=== PATIENT | female | born 1950 | race African-American/Black ===

== ENCOUNTER 2016-05-29 11:56 | Inpatient (IN) | payer OTHER, MEDICARE ==
[2016-05-29] VITALS (17 sets, daily range): BP systolic 122–261; BP diastolic 65–160; PULSE 64–140; RESP 16–20; TEMP 97.6–98.4; O2SAT 96–100
[~2016-05-29] VITALS: Ht 172.7 cm; Wt 67.6 kg
[~2016-05-29 11:56] MED LIST: LISI-587 PO
--- NOTE | 2016-05-29 12:08 | PD ---
Physical Exam Time Seen by Provider: 12:05 Narrative 66 yo female with c/o high BP. Been out of meds for 1 month. Denies symptoms. Told to come to ER by PCP. Has appointment with PCP tomorrow. BP elevated in Triage. Seen in triage, awaiting bed placement. Data Data Last Documented VS Vital Signs Date Time Temp Pulse Resp B/P Pulse Ox O2 Delivery O2 Flow Rate FiO2 05/29/16 11:58 97.6 140 20 246/160 98 Room Air MDM Supervised Visit with HINA: Kayla Cerrato May 29, 2016 12:08
[2016-05-29] MEDS ORDERED: cloNIDine HCL 0.2 MG TAB PO ONE (12:30)
[2016-05-29] MEDS ORDERED: HYDROCHLOROTHIAZIDE 25 MG TAB PO ONE (12:30)
[2016-05-29] MEDS ORDERED: LISINOPRIL 20 MG TAB PO ONE (12:30)
--- NOTE | 2016-05-29 13:09 | PD ---
HPI Chief Complaint: Hypertension Time Seen by Provider: 12:16 Travel History International Travel<30 days: No Contact w/Intl Traveler<30days: No Traveled to known affect area: No History of Present Illness HPI This 66 year-old woman who presents to the emergency department complaining of elevated blood pressure. Patient's had hypertension for some time. She is normally on clonidine 0.2 mg twice a day and Zestoretic . She could have her medicine for 2 months. She went to her doctor they can see her. She has appointment with a new primary care doctor tomorrow. The secondary to the emergency department because her blood pressure is elevated. She denies any symptoms at all at this point. No chest pain. No trouble breathing. No headache. History Past Medical History Narrative Medical Hypertension Influenza Vaccination: No Past Surgical History Surgical History: No Previous Surgery Social History Alcohol Use: Yes (OCCASIONAL ) Tobacco Use: Yes Allergies-Medications (Allergen,Severity, Reaction): Coded Allergies: No Known Allergies (Unverified , 05/29/16) Reported Meds & Prescriptions Reported Meds & Active Scripts Active Zestoretic (HCTZ/Lisinopril) Tab 1 Tab PO DAILY 15 Days Review of Systems Except as stated in HPI: all other systems reviewed are Neg Physical Exam Narrative GENERAL: Well-appearing 66 year-old woman, no acute distress. SKIN: Focused skin assessment warm/dry. NECK: Trachea midline. No JVD. CARDIOVASCULAR: Regular rate and rhythm. No murmur appreciated. RESPIRATORY: No accessory muscle use. Clear to auscultation. Breath sounds equal bilaterally. GASTROINTESTINAL: Abdomen soft, non-tender, nondistended. Hepatic and splenic margins not palpable. MUSCULOSKELETAL: No obvious deformities. No clubbing. No cyanosis. No edema. NEUROLOGICAL: Awake and alert. No obvious cranial nerve deficits. Motor grossly within normal limits. Normal speech. PSYCHIATRIC: Appropriate mood and affect; insight and judgment normal. Data Data Last Documented VS Vital Signs Date Time Temp Pulse Resp B/P Pulse Ox O2 Delivery O2 Flow Rate FiO2 05/29/16 15:13 76 20 215/103 99 Room Air 05/29/16 11:58 97.6 Orders Clonidine (Catapres) (05/29/16 12:30) Lisinopril (Prinivil) (05/29/16 12:30) Hydrochlorothiazide (Hydrodiuril) (05/29/16 12:30) Labetalol Inj (Trandate Inj) (05/29/16 13:45) Complete Blood Count With Diff (05/29/16 13:42) Comprehensive Metabolic Panel (05/29/16 13:42) Electrocardiogram (05/29/16 ) Iv Access Insert/Monitor (05/29/16 13:43) Admit Order (Ed Use Only) (05/29/16 ) Labs Laboratory Tests Test 05/29/16 14:00 White Blood Count 9.7 TH/MM3 Red Blood Count 4.64 MIL/MM3 Hemoglobin 14.1 GM/DL Hematocrit 41.5 % Mean Corpuscular Volume 89.5 FL Mean Corpuscular Hemoglobin 30.5 PG Mean Corpuscular Hemoglobin 34.1 % Concent Red Cell Distribution Width 13.6 % Platelet Count 137 TH/MM3 Mean Platelet Volume 8.8 FL Neutrophils (%) (Auto) 81.5 % Lymphocytes (%) (Auto) 13.9 % Monocytes (%) (Auto) 4.3 % Eosinophils (%) (Auto) 0.1 % Basophils (%) (Auto) 0.2 % Neutrophils # (Auto) 7.9 TH/MM3 Lymphocytes # (Auto) 1.4 TH/MM3 Monocytes # (Auto) 0.4 TH/MM3 Eosinophils # (Auto) 0.0 TH/MM3 Basophils # (Auto) 0.0 TH/MM3 CBC Comment DIFF FINAL Differential Comment Sodium Level 138 MEQ/L Potassium Level 3.7 MEQ/L Chloride Level 105 MEQ/L Carbon Dioxide Level 22.4 MEQ/L Anion Gap 11 MEQ/L Blood Urea Nitrogen 9 MG/DL Creatinine 0.96 MG/DL Estimat Glomerular Filtration 70 ML/MIN Rate Random Glucose 134 MG/DL Calcium Level 9.3 MG/DL Total Bilirubin 0.9 MG/DL Aspartate Amino Transf 34 U/L (AST/SGOT) Alanine Aminotransferase 19 U/L (ALT/SGPT) Alkaline Phosphatase 87 U/L Total Protein 8.2 GM/DL Albumin 3.4 GM/DL [facility] Medical Decision Making Medical Screen Exam Complete: Yes Emergency Medical Condition: Yes Interpretation(s) My review of EKG: Normal sinus rhythm at a rate of 75, leftward axis, probable LVH, no definite evidence of acute ischemia. LABS: CBC remarkable for mildly low platelets CMP is unremarkable Differential Diagnosis Asymptomatic hypertension, hypertensive crisis, accelerated hypertension Narrative Course Medical decision making 66 year-old woman with marked elevation in her blood pressure but no symptoms at all. She could be having rebound hypertension but she's been out of her clonidine for some time. 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 Diagnosis Primary Impression: Accelerated hypertension Admitting Information Admitting Physician Requests: Admit Martin Mosqueda MD May 29, 2016 13:09
[2016-05-29] MEDS ORDERED: LABETALOL HCL 100 MG/20 ML VIAL IV PUSH ONE (13:45)
[2016-05-29 14:22] LABS: AUTOMATED NEUTROPHIL # 7.9 TH/MM3 (1.8-7.7); BASOPHIL % 0.2 % (0.0-2.0); EOSINOPHIL % 0.1 % (0.0-4.0); HEMATOCRIT 41.5 % (35.0-46.0); HEMO FLAGS DIFF FINAL; LYMPH % 13.9 % (9.0-44.0); LYMPHOCYTE # 1.4 TH/MM3 (1.0-4.8); MEAN CELL VOLUME 89.5 FL (80.0-100.0); MEAN CORPUSCULAR HEMOGLOBIN 30.5 PG (27.0-34.0); MEAN CORPUSCULAR HGB CONC 34.1 % (32.0-36.0); MONO % 4.3 % (0.0-8.0); NEUT % 81.5 % (16.0-70.0); PLATELET COUNT 137 TH/MM3 (150-450); RED BLOOD COUNT 4.64 MIL/MM3 (4.00-5.30); RED CELL DISTRIBUTION WIDTH 13.6 % (11.6-17.2); WHITE BLOOD COUNT 9.7 TH/MM3 (4.0-11.0)
[2016-05-29 15:05] LABS: ALKALINE PHOSPHATASE 87 U/L (45-117); TOTAL BILIRUBIN ADULT 0.9 MG/DL (0.2-1.0)
[2016-05-29 15:06] LABS: ALT (GPT) 19 U/L (10-53); ANION GAP 11 MEQ/L (5-15); AST (GOT) 34 U/L (15-37); BICARBONATE 22.4 MEQ/L (21.0-32.0); BLOOD UREA NITROGEN 9 MG/DL (7-18); CHLORIDE 105 MEQ/L (98-107); GLOMERULAR FILTRATION RATE 70 ML/MIN (>89); POTASSIUM 3.7 MEQ/L (3.5-5.1); SODIUM (NA) 138 MEQ/L (136-145)
[2016-05-29] MEDS ORDERED: ACETAMINOPHEN 325 MG TAB PO PRN ×2 (15:45)
[2016-05-29] MEDS ORDERED: ONDANSETRON HCL 4 MG/2 ML VIAL IVP PRN (15:45)
[2016-05-29] MEDS ORDERED: NALOXONE HCL 0.4 MG/ML AMP IV PRN (15:45)
[2016-05-29] MEDS ORDERED: ENOXAPARIN SODIUM 40 MG/0.4 ML SYRINGE SQ SCH (15:45)
[2016-05-29] MEDS ORDERED: SODIUM CHLORIDE 0.9% FLUSH 10 ML FLUSH IV FLUSH PRN (15:45)
--- NOTE | 2016-05-29 15:48 | HHI.HP ---
[facility] Primary Care Physician Non-Staff Admission Diagnosis accelerated hypertension Diagnoses: (1) Accelerated hypertension (2) Impaired fasting glucose (3) Thrombocytopenia Chief Complaint: elevated BP Travel History International Travel<30 Days: No Contact w/Intl Traveler <30 Da: No Traveled to Known Affected Are: No History of Present Illness 66-year-old female with a history of hypertension as advised to come to the ED for evaluation of elevated BP which on arrival in the ED was 246/160 however despite you clonidine 0.21 in lateral 20 mg IV 1 patient's SBP remains elevated above 200. Patient states for the past 2 months she run out of her medications and was unable to eat her per Medicare physician, who has been assigned to her recently and is supposed to establish care tomorrow 05/30/16 at 10 AM. She also reports fatigue however denies any headaches, blurred vision or GI bleed. Review of Systems Other 12 systems reviewed and are negative except for the one mentioned in the history of present illness Past Family Social History Past Medical History Hypertension Past Surgical History No Previous Surgery Reported Medications Zestoretic 20/ (HCTZ/Lisinopril) Tab 1 Tab PO DAILY 15 Days Allergies: Coded Allergies: No Known Allergies (Unverified , 05/29/16) Family History Strong family history of diabetes type 2, end-stage renal disease Social History Alcohol Use: Yes (OCCASIONAL ) Tobacco Use: Yes Physical Exam Vital Signs Vital Signs Date Time Temp Pulse Resp B/P Pulse Ox O2 Delivery O2 Flow Rate FiO2 05/29/16 15:13 76 20 215/103 99 Room Air 05/29/16 14:37 83 20 224/105 99 Room Air 05/29/16 14:34 99 20 241/123 99 Room Air 05/29/16 13:38 119 20 259/130 99 Room Air 05/29/16 13:35 117 20 248/134 99 Room Air 05/29/16 12:57 140 20 261/141 05/29/16 11:58 97.6 140 20 246/160 98 Room Air Physical Exam GENERAL: This is a well-nourished, well-developed patient, in no apparent distress. SKIN: No rashes, ecchymoses or lesions. Cool and dry. HEAD: Atraumatic. Normocephalic. No temporal or scalp tenderness. EYES: Pupils equal round and reactive. Extraocular motions intact. No scleral icterus. No injection or drainage. ENT: Nose without bleeding, purulent drainage or septal hematoma. Throat without erythema, tonsillar hypertrophy or exudate. Uvula midline. Airway patent. NECK: Trachea midline. No JVD or lymphadenopathy. Supple, nontender, no meningeal signs. CARDIOVASCULAR: Regular rate and rhythm without murmurs, gallops, or rubs. RESPIRATORY: Clear to auscultation. Breath sounds equal bilaterally. No wheezes , rales, or rhonchi. GASTROINTESTINAL: Abdomen soft, non-tender, nondistended. No hepato-splenomegaly , or palpable masses. No guarding. MUSCULOSKELETAL: Extremities without clubbing, cyanosis, or edema. No joint tenderness, effusion, or edema noted. No calf tenderness. Negative Homans sign bilaterally. NEUROLOGICAL: Awake and alert. Cranial nerves II through XII intact. Motor and sensory grossly within normal limits. Five out of 5 muscle strength in all muscle groups. Normal speech. Laboratory Laboratory Tests Test 05/29/16 14:00 White Blood Count 9.7 Red Blood Count 4.64 Hemoglobin 14.1 Hematocrit 41.5 Mean Corpuscular Volume 89.5 Mean Corpuscular Hemoglobin 30.5 Mean Corpuscular Hemoglobin 34.1 Concent Red Cell Distribution Width 13.6 Platelet Count 137 Mean Platelet Volume 8.8 Neutrophils (%) (Auto) 81.5 Lymphocytes (%) (Auto) 13.9 Monocytes (%) (Auto) 4.3 Eosinophils (%) (Auto) 0.1 Basophils (%) (Auto) 0.2 Neutrophils # (Auto) 7.9 Lymphocytes # (Auto) 1.4 Monocytes # (Auto) 0.4 Eosinophils # (Auto) 0.0 Basophils # (Auto) 0.0 CBC Comment DIFF FINAL Differential Comment Sodium Level 138 Potassium Level 3.7 Chloride Level 105 Carbon Dioxide Level 22.4 Anion Gap 11 Blood Urea Nitrogen 9 Creatinine 0.96 Estimat Glomerular Filtration 70 Rate Random Glucose 134 Calcium Level 9.3 Total Bilirubin 0.9 Aspartate Amino Transf 34 (AST/SGOT) Alanine Aminotransferase 19 (ALT/SGPT) Alkaline Phosphatase 87 Total Protein 8.2 Albumin 3.4 Result Diagram: 05/29/16 1400 05/29/16 1400 Assessment and Plan Problem List: (1) Accelerated hypertension ICD Code: I10 Status: Acute (2) Thrombocytopenia ICD Code: D69.6 Status: Acute (3) Impaired fasting glucose ICD Code: R73.01 Status: Acute Assessment and Plan 66-year-old female with Accelerated hypertension: Secondary to noncompliance; will admit patient in ICU and start Cardene drip .check 2-D echo as well as lipid profile. Will also check cardiac enzyme and EKG. Monitor BMP Medical noncompliance: Patient consult against IFG: Known history of diabetes type 2, check A1c and treat accordingly Thrombocytopenia: Monitor CBC DVT prophylaxis: Heparin subcutaneous Critical care time spent over 55minutes Code Status Full code Discussed Condition With Patient, , ED physician Physician Certification 2 Midnight Certification Type: Admission for Inpatient Services Order for Inpatient Services The services are ordered in accordance with Medicare regulations or non- Medicare payer requirements, as applicable. In the case of services not specified as inpatient-only, they are appropriately provided as inpatient services in accordance with the 2-midnight benchmark. Estimated LOS (days): 2 days is the estimated time the patient will need to remain in the hospital, assuming treatment plan goals are met and no additional complications. Post-Hospital Plan: Not yet determined Richie Meraz MD May 29, 2016 15:48
[2016-05-29] MEDS: niCARdipine INJ 25 MG in SODIUM CHLOR 0.9% 250 ML INJ 250 ML IV SCH (16:11)
[2016-05-29] MEDS ORDERED: CLON0.2T PO (17:03)
[2016-05-29] MEDS ORDERED: [UNRECOGNIZED DRUG - REMARK] (17:03)
[2016-05-29] MEDS ORDERED: LISI20TA PO (17:03)
[2016-05-29] MEDS: HEPARIN SODIUM - SQ 10,000 UNITS/ML VIAL SQ SCH (20:53)
[2016-05-29] MEDS: SODIUM CHLORIDE 0.9% FLUSH 10 ML FLUSH IV FLUSH SCH (20:53)
[2016-05-29] MEDS ORDERED: TEMAZEPAM 15 MG CAP PO PRN (21:00)
--- NOTE | 2016-05-29 22:36 | EKG ---
Date Performed: 05/29/2016 Time Performed: 15:18:37 PTAGE: 66 years EKG: Sinus rhythm POSSIBLE LEFT ATRIAL ENLARGEMENT LEFT VENTRICULAR HYPERTROPHY AND ST-T CHANGE ABNORMAL ECG PREVIOUS TRACING : 12/13/2013 16.30 Compared to previous tracing, nonspecific lateral T wave ab normality is now present. DOCTOR: Tima Main Interpretating Date/Time 05/29/2016 22:34:41
[2016-05-30 03:00] VITALS: BP 164/94; PULSE 85; RESP 20; TEMP 98.1; O2SAT 98
[2016-05-30] MEDS: niCARdipine INJ 25 MG in SODIUM CHLOR 0.9% 250 ML INJ 250 ML IV SCH (04:50)
[2016-05-30 05:00] LABS: AUTOMATED NEUTROPHIL # 5.3 TH/MM3 (1.8-7.7); BASOPHIL # 0.1 TH/MM3 (0-0.2); EOSINOPHIL % 0.6 % (0.0-4.0); HEMATOCRIT 39.7 % (35.0-46.0); HEMO FLAGS DIFF FINAL; LYMPHOCYTE # 1.9 TH/MM3 (1.0-4.8); MEAN CELL VOLUME 87.9 FL (80.0-100.0); MEAN CORPUSCULAR HEMOGLOBIN 31.2 PG (27.0-34.0); MEAN CORPUSCULAR HGB CONC 35.5 % (32.0-36.0); MONO % 6.5 % (0.0-8.0); NEUT % 67.9 % (16.0-70.0); PLATELET COUNT 124 TH/MM3 (150-450); RED BLOOD COUNT 4.52 MIL/MM3 (4.00-5.30); RED CELL DISTRIBUTION WIDTH 13.5 % (11.6-17.2); WHITE BLOOD COUNT 7.8 TH/MM3 (4.0-11.0)
[2016-05-30 05:30] LABS: ALKALINE PHOSPHATASE 82 U/L (45-117); ALT (GPT) 16 U/L (10-53); ANION GAP 11 MEQ/L (5-15); AST (GOT) 20 U/L (15-37); BICARBONATE 26.2 MEQ/L (21.0-32.0); BLOOD UREA NITROGEN 8 MG/DL (7-18); CHLORIDE 101 MEQ/L (98-107); GLOMERULAR FILTRATION RATE 88 ML/MIN (>89); HDL CHOLESTEROL 49.1 MG/DL (40.0-60.0); LDL CHOLESTEROL 92 MG/DL (0-99); SODIUM (NA) 138 MEQ/L (136-145)
[2016-05-30 05:34] LABS: POTASSIUM 2.9 MEQ/L (3.5-5.1)
[2016-05-30] MEDS ORDERED: POTASSIUM CHLORIDE 20 MEQ CONTROLLED RELEASE TAB PO ONE (05:45)
[2016-05-30] MEDS ORDERED: POTASSIUM CHLORIDE 10 MEQ CONTROLLED RELEASE TAB PO ONE (07:30)
[2016-05-30 07:35] VITALS: BP 160/88; PULSE 112; RESP 18; TEMP 98.6; O2SAT 97
[2016-05-30] MEDS ORDERED: CLON.2 PO (08:35)
[2016-05-30] MEDS ORDERED: LISI-586 PO (08:35)
[2016-05-30] MEDS ORDERED: POTA-163 PO (08:35)
[2016-05-30] MEDS: SODIUM CHLORIDE 0.9% FLUSH 10 ML FLUSH IV FLUSH SCH (08:36)
[2016-05-30] MEDS: HEPARIN SODIUM - SQ 10,000 UNITS/ML VIAL SQ SCH (08:37)
--- NOTE | 2016-05-30 08:54 | HHI.PR ---
Subjective Remarks Follow-up accelerated hypertension 05/30/16-patient seen and examined, BP improved, patient denies any chest pain or shortness of breath. No acute event overnight. Objective Vitals Vital Signs Date Time Temp Pulse Resp B/P Pulse Ox O2 Delivery O2 Flow Rate FiO2 05/30/16 07:35 98.6 112 18 160/88 97 05/30/16 07:35 112 05/30/16 03:00 98.1 85 20 164/94 98 05/30/16 03:00 85 05/29/16 23:00 64 05/29/16 23:00 98.1 64 18 122/65 97 05/29/16 19:00 98.4 74 16 156/81 96 05/29/16 19:00 74 05/29/16 18:00 98.4 115 16 178/80 99 05/29/16 17:50 75 18 158/80 98 Room Air 05/29/16 17:31 70 16 185/87 100 Room Air 05/29/16 17:00 77 18 193/89 99 Room Air 05/29/16 16:50 75 18 192/91 99 Room Air 05/29/16 16:30 77 18 194/91 99 Room Air 05/29/16 16:17 70 18 233/109 100 Room Air 05/29/16 15:13 76 20 215/103 99 Room Air 05/29/16 14:37 83 20 224/105 99 Room Air 05/29/16 14:34 99 20 241/123 99 Room Air 05/29/16 13:38 119 20 259/130 99 Room Air 05/29/16 13:35 117 20 248/134 99 Room Air 05/29/16 12:57 140 20 261/141 05/29/16 11:58 97.6 140 20 246/160 98 Room Air I/O 05/29/16 05/29/16 05/29/16 05/30/16 05/30/16 05/30/16 07:00 15:00 23:00 07:00 15:00 23:00 Intake Total 1031 ml Output Total 1325 ml Balance -294 ml Intake Oral 960 ml IV Total 71 ml Output Urine Total 1325 ml # Bowel Movements 0 Result Diagram: 05/30/16 0444 05/30/16 0444 Objective Remarks GENERAL: NAD SKIN: Warm and dry. HEAD: Normocephalic. EYES: No scleral icterus. No injection or drainage. NECK: Supple, trachea midline. No JVD or lymphadenopathy. CARDIOVASCULAR: Regular rate and rhythm without murmurs, gallops, or rubs. RESPIRATORY: Breath sounds equal bilaterally. No accessory muscle use. GASTROINTESTINAL: Abdomen soft, non-tender, nondistended. MUSCULOSKELETAL: No cyanosis, or edema. BACK: Nontender without obvious deformity. No CVA tenderness. 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 Elevated cardiac enzymes however likely secondary to Hypertension . 2-D echo pending Cardiomyopathy due to hypertension: As evidence of elevated cardiac enzymes, 2- D echo pending Medical noncompliance: Patient consult against IFG: Known history of diabetes type 2, A1c pending and treat accordingly Thrombocytopenia: Monitor CBC Hypokalemia: Replace electrolyte this a.m. and monitor DVT prophylaxis: Heparin subcutaneous Patient's condition tremendously improved since admission therefore she will be discharged and follow-up of her PCP today 05/30/16 Discharge Planning Discharge patient to home Condition on discharge: Improved Healthy Diet as tolerated Ad Paula activity Rx written: Clonidine 0.2mg BID, Zestoretic Follow-up with primary care physician today 05/30/16 Richie Meraz MD May 30, 2016 08:54
[2016-05-30] MEDS ORDERED: NON-FORMULARY DRUG (Lisinopril-Hctz 1 TAB) PO SCH (09:00)
[2016-05-30] MEDS ORDERED: LISINOPRIL 20 MG TAB PO SCH (09:00)
[2016-05-30] MEDS ORDERED: cloNIDine HCL 0.2 MG TAB PO SCH (09:00)
[2016-05-30] MEDS ORDERED: HYDROCHLOROTHIAZIDE 25 MG TAB PO SCH (09:00)
--- NOTE | 2016-05-30 09:39 | EKG ---
Date Performed: 05/30/2016 Time Performed: 04:10:46 PTAGE: 66 years EKG: Sinus tachycardia Possible left atrial abnormality Cannot rule out septal infarct - age und etermined Possible left ventricular hypertrophy Lateral ST-T changes may be due to hypertrophy and/or ischemia Abnormal ECG PREVIOUS TRACING : 05/29/2016 15.18 No significant change from previous tracing noted. DOCTOR: Tima Main Interpretating Date/Time 05/30/2016 09:38:03
[2016-05-30 11:48] LABS: HEMOGLOBIN A1a 0.7 %; HEMOGLOBIN A1b 0.4 %; HEMOGLOBIN F 0.9 %; HEMOGLOBIN LA1C 1.4 %; HEMOGLOBIN P3 2.5 %
== END 2016-05-30 10:14 | disposition home or self-care (01) | DRG 305 ==
LOC: NEPD 11:56 → NEDA 15:30 → HCVR 17:58
PROVIDERS: ADMIT Hospitalist; ATTEND Hospitalist
DX: I15.8 Other secondary hypertension (principal); I43 Cardiomyopathy in diseases classified elsewhere; I11.9 Hypertensive heart disease without heart failure; D69.6 Thrombocytopenia, unspecified; Z72.0 Tobacco use; E87.6 Hypokalemia; E11.9 Type 2 diabetes mellitus without complications; R74.8 Abnormal levels of other serum enzymes; Z83.3 Family history of diabetes mellitus; Z84.1 Family history of disorders of kidney and ureter; Z91.19 Patient's noncompliance with other medical treatment and regimen
CPT/HCPCS: 80053; 80061; 82550; 83036; 84484; 85025; 93005; 96374; J1644; J7050

== ENCOUNTER 2017-10-12 00:03 | Inpatient (IN) ==
[2017-10-12] MEDS ORDERED: Sod Chloride 0.9% Inj 1,000 ML IV.SIG ONE ×2 (00:30→01:50)
[2017-10-12] MEDS ORDERED: Sod Chloride 0.9% Inj 1,000 ML IV.CONT SCH (00:30)
[2017-10-12 00:47] LABS: Baso # (Auto) 0.1 th/mm3 (0.0-0.2); Baso % (Auto) 0.8 % (0.0-2.0); Eos # (Auto) 0.1 th/mm3 (0.0-0.4); Eos % (Auto) 0.6 % (0.0-4.0); Hematocrit 37.2 % (35.0-46.0); Hemoglobin 13.2 gm/dL (11.6-15.3); Lymph # (Auto) 1.8 th/mm3 (1.0-4.8); Lymph % (Auto) 21.3 % (9.0-44.0); Mean Corpuscular HGB Conc 35.3 % (32.0-36.0); Mean Corpuscular Hemoglobin 32.3 pg (27.0-34.0); Mean Corpuscular Volume 91.3 fL (80.0-100.0); Mean Platelet Volume 8.9 fL (7.0-11.0); Mono # (Auto) 0.4 th/mm3 (0.0-0.9); Mono % (Auto) 4.5 % (0.0-8.0); Neut # (Auto) 6.1 th/mm3 (1.8-7.7); Neut % (Auto) 72.8 % (16.0-70.0); Platelet Count 183 th/mm3 (150-450); Red Blood Count 4.08 mil/mm3 (4.00-5.30); Red Cell Distribution Width 12.7 % (11.6-17.2); White Blood Count 8.4 th/mm3 (4.0-11.0)
[2017-10-12 00:59] LABS: Bilirubin,Urine Negative (Negative); Clarity,Urine Clear (Clear); Color,Urine Straw (Yellw/Straw); Glucose,Urine (UA) Negative (Negative); Leukocyte Esterase,Urine Negative (Negative); Nitrite,Urine Negative (Negative); Specific Gravity,Urine 1.003 (1.002-1.035); Squamous Epithelial Cell,Urine <1 /hpf (0-5)
[2017-10-12 01:01] LABS: Activated Partial Thrombo Time 24.7 sec (24.3-30.1); INR 1.1 Ratio; Prothrombin Time 11.4 sec (9.8-11.6)
--- NOTE | 2017-10-12 01:05 | ED ---
HPI General Chief complaint: Seizure Stated complaint: poss seizure Time Seen by Provider: 10/12/17 00:05 Source: family and EMS Mode of arrival: EMS Limitations: altered mental status (The patient is drowsy on arrival after administration of 2 mg of Versed IV.) History of Present Illness HPI narrative: The patient is a 67 year old female who presents to the [facility] emergency department with a history of seizure activity noticed by her prior to arrival. According to ambulance services the patient went out with her girlfriends earlier in the evening. She came home and was acting like her usual self. According to them, she called her into the room because she was not feeling well and appeared to have generalized tonic-clonic seizure activity. When ambulance services arrived the patient was noted to be altered and unable to provide any significant history. The patient's history was obtained from the patient's . He reports that she has no allergies to medicines. He reported that she has a history of hypertension and hyperlipidemia. According to ambulance services he denied her having any recent changes in her medication regimen. The patient's blood sugar prior to arrival was noted to be 180. The patient in route to this facility had another generalized tonic-clonic seizure and was given Versed 2 mg IV. The patient became drowsy, only responsive to painful stimulation after the administration of this medicine. No other history is able to be obtained from the patient on arrival. Related Data Home Medications Medication Instructions Recorded Confirmed atorvastatin 10 mg PO DAILY 10/12/17 10/12/17 clonidine HCl 0.1 mg PO DAILY 10/12/17 10/12/17 lisinopril 10 mg PO DAILY 10/12/17 10/12/17 Allergies Allergy/AdvReac Type Severity Reaction Status Date / Time No Known Allergies Allergy Verified 10/12/17 00:17 Review of Systems ROS Unobtainable ROS Unobtainable: unobtainable due to mental status PMFSH Medical History Medical History High cholesterol (Acute) Hypertension (Acute) Surgical History Surgical History No history of previous surgery (Acute) Family History Family History Brother Laryngeal cancer Father Diabetes mellitus Social History Social History Substance History: No History of Abuse Second Hand Smoke Exposure: No () Smoking Status: Former smoker Smoking End Date: 3-4 years ago How Often Do You Have a Drink Containing Alcohol: 4 or more times a week (1-2 beers) Recent Travel in [facility] within the Last 8 Weeks: No Recent Out of Country Travel within the Last 8 Weeks: No Immunization History Tetanus Immunization: Unable to Assess Hx Influenza Vaccine This Season: Unable to Assess Exam Const General: well developed Nutritional Appearance: well nourished Limitations: altered mental status (Patient medicated with Versed 2 mg IV prior to arrival, patient is sleeping soundly.) [facility] Head: normocephalic and atraumatic Nose: no nasal discharge and no epistaxis Mouth: moist mucous membranes Throat: posterior oropharynx normal and uvula midline Eyes Sclera: normal sclerae Pupils: pinpoint (2 mm bilaterally although reactive to light.) Neck Neck: no meningeal signs, trachea midline and no JVD Resp Effort & Inspection: no use of accessory muscles Auscultation: clear to auscultation bilaterally Cardio Rate: regular rate Rhythm: regular rhythm Heart Sounds: no gallops, no murmurs and no rubs GI Inspection: non-distended Palpation: soft, no hepatosplenomegaly and nontender Auscultation: normal bowel sounds Back/Spine/Pelvis Back: no CVA tenderness Skin General: dry skin (warm) Neuro General: other (Drowsy on arrival, reactive to painful stimulation. Neurologic examination is limited due to her level of drowsiness from Versed administration prior to arrival. No obvious facial asymmetry. She was reportedly moving all extremities prior to arrival.) Extrem General: normal to inspection (No calf tenderness on palpation. 2+ pulses in all 4 extremities.), no clubbing, no cyanosis and no edema Course Reevaluation(s) Reevaluation #1: The patient continued to be somnolent, until she came back from CT scan. The patient was then noticed by the staff to be awake and alert. She was able to answer questions. She is still confused about the events that occurred this evening. The patient's blood pressure that was initially low on arrival improved and actually became slightly hypertensive. Consultations Consultation #1: The patient's case including history, pertinent physical examination findings, and laboratory studies were discussed with Dr. Seals. It was agreed that the patient would be admitted to the [facility] service. Initial Documented Vital Signs Temperature 97.8 F 10/12/17 00:17 Pulse Rate 71 10/12/17 00:17 Respiratory Rate 16 10/12/17 00:17 Blood Pressure 101/56 L 10/12/17 00:17 Pulse Oximetry 100 10/12/17 00:17 Last Documented Vital Signs Temperature 97.7 F 10/12/17 12:00 Pulse Rate 60 10/12/17 12:00 Respiratory Rate 15 10/12/17 12:00 Blood Pressure 169/96 H 10/12/17 12:00 Pulse Oximetry 98 10/12/17 12:59 Critical Care Time Critical Care Time: Yes Total Critical Care Time: 36 Attestation: Aggregate critical care time was 36 minutes. Time to perform other separately billable procedures was not included in the critical care time. My time did not include minutes spent treating any other patients simultaneously or on activities that did not directly contribute to the patient's treatment. The services I provided to this patient were to treat and/or prevent clinically significant deterioration that could result in: Progression of encephalopathy, versus respiratory failure, versus cardiovascular collapse I provided critical care services requiring my management, as noted below: Chart data review, documentation time, medication orders and management, vital sign assessments/reviewing monitor data, ordering and reviewing lab tests, ordering and interpreting/reviewing x-rays and diagnostic studies, care of the patient and discussion of the patient with the admitting physicians. Medical Decision Making MDM Narrative Medical decision making narrative: During the course of the patient's emergency department visit, the patient's history, examination, and differential diagnosis were reviewed with the patient. The patient was placed on a monitor worker with oximetry and frequent blood pressure monitoring. The patient had IV access obtained and blood work sent for analysis. The diagnostic evaluation was started regarding the patient's altered mentation and seizure activity. The patient was initially provided normal saline 1 L IV fluid bolus. It was ordered to give a dose of Narcan to assess for any changes in mentation, however at the patient arrived back from CT the patient became more awake and alert. It appears that the patient had a prolonged postictal state associated with sedation from the Versed. While the patient was in CT the patient's sodium came back at 116. It was also ordered that the patient would be given 1 amp of bicarb to increase in an urgent fashion her sodium level due to her profound somnolence, however this was also not necessary as when she arrived back from CT she became awake and alert and was able to provide more history. The patient CT scan of the brain showed no acute abnormality, chest x-ray showed no evidence of acute cardiopulmonary disease. The patient will be admitted to the intensive care unit for continued monitoring of hyponatremia, hypokalemia. This could be medication related. Further testing will be done to identify the underlying cause. The patient's results were discussed with the patient, including the plan of care. I explained that further testing and/ or monitoring is indicated based on the patient's history, examination, and/ or laboratory findings. Therefore, I recommended admission for additional evaluation. The patient expressed understanding and was agreeable with this plan. The patient was admitted to the hospital in guarded condition and sent to a bed under the care of the secondary english teacher's service. Medical Screen Exam Complete: Yes Emergency Medical Condition: Yes Differential Diagnosis Differential Diagnosis: Electrolyte derangements causing encephalopathy, versus intracranial hemorrhage such as brainstem bleed, versus intracranial mass, versus toxidrome Medical Records Medical records reviewed: Yes I reviewed the patient's medical records. Lab Data Lab results reviewed: Yes I reviewed the patient's lab results. Result diagrams: 10/12/17 00:25 10/12/17 15:18 Lab Results 10/12/17 10/12/17 10/12/17 Range/Units 00:25 00:25 00:25 WBC 8.4 (4.0-11.0) th/mm3 RBC 4.08 (4.00-5.30) mil/mm3 Hgb 13.2 (11.6-15.3) gm/dL Hct 37.2 (35.0-46.0) % MCV 91.3 (80.0-100.0) fL MCH 32.3 (27.0-34.0) pg MCHC 35.3 (32.0-36.0) % RDW 12.7 (11.6-17.2) % Plt Count 183 (150-450) th/mm3 MPV 8.9 (7.0-11.0) fL Neut % (Auto) 72.8 H (16.0-70.0) % Lymph % (Auto) 21.3 (9.0-44.0) % Edwards % (Auto) 4.5 (0.0-8.0) % Eos % (Auto) 0.6 (0.0-4.0) % Baso % (Auto) 0.8 (0.0-2.0) % Neut # (Auto) 6.1 (1.8-7.7) th/mm3 Lymph # (Auto) 1.8 (1.0-4.8) th/mm3 Edwards # (Auto) 0.4 (0.0-0.9) th/mm3 Eos # (Auto) 0.1 (0.0-0.4) th/mm3 Baso # (Auto) 0.1 (0.0-0.2) th/mm3 WBC Differential . Differential Comment Auto diff final PT 11.4 (9.8-11.6) sec INR 1.1 Ratio APTT 24.7 (24.3-30.1) sec Sodium 116 L* (136-145) meq/L Potassium 2.8 L* (3.5-5.1) meq/L Chloride 80 L (98-107) meq/L Carbon Dioxide 18.8 L (21.0-32.0) meq/L Anion Gap 17 H (5-15) meq/L BUN 10 (7-18) mg/dL Creatinine 1.16 H (0.50-1.00) mg/dL Estimated GFR 56 L (>89) mL/min POC Glucose (68-110) mg/dl Random Glucose 175 H (74-106) mg/dL Osmolality (275-295) mosm/kg Calcium 8.1 L (8.5-10.1) mg/dL Total Bilirubin 0.9 (0.2-1.0) mg/dL AST 26 (15-37) U/L ALT 18 (10-53) U/L Alkaline Phosphatase 55 (45-117) U/L Ammonia (11-32) mcmol/L Total Creatine Kinase 102 (26-192) U/L CK-MB (CK-2) 1.9 (0.5-3.6) ng/mL Troponin I 0.22 H (0.02-0.05) ng/mL Total Protein 7.0 (6.4-8.2) g/dL Albumin 3.3 L (3.4-5.0) g/dL Lipase 210 (73-393) U/L TSH 8.810 H (0.358-3.740) uIU/mL Free T4 (0.76-1.46) ng/dL Free T3 (2.18-3.98) pg/mL Cortisol mcg/dL Urine Color (Yellw/Straw) Urine Clarity (Clear) Urine pH (5.0-8.5) Ur Specific [place] (1.002-1.035) Urine Protein (Neg-Trace) mg/dL Urine Glucose (UA) (Negative) mg/dL Urine Ketones (Negative) mg/dL Urine Occult Blood (Negative) Urine Nitrate (Negative) Urine Bilirubin (Negative) Urine Urobilinogen (Less than 2) mg/dL Ur Leukocyte Esterase (Negative) Urine RBC (0-3) /hpf Urine WBC (0-5) /hpf Ur Squamous Epith Cells (0-5) /hpf Micro UA Comment Ur Microscopic Review Urine Culture Comments Urine Osmolality (300-1300) mosm/kg Ur Random Creatinine (27-300) mg/dL Ur Random Sodium meq/L Ur Random Uric Acid mg/dL Nasal Screen MRSA (PCR) (Negative) Urine Opiates Screen (Neg) Ur Barbiturates Screen (Neg) Ur Amphetamines Screen (Neg) U Benzodiazepines Scrn (Neg) Urine Cocaine Screen (Neg) U Cannabinoids Screen (Neg) Serum Alcohol Less than 3 (0-5) mg/dL 10/12/17 10/12/17 10/12/17 Range/Units 00:25 00:27 00:27 WBC (4.0-11.0) th/mm3 RBC (4.00-5.30) mil/mm3 Hgb (11.6-15.3) gm/dL Hct (35.0-46.0) % MCV (80.0-100.0) fL MCH (27.0-34.0) pg MCHC (32.0-36.0) % RDW (11.6-17.2) % Plt Count (150-450) th/mm3 MPV (7.0-11.0) fL Neut % (Auto) (16.0-70.0) % Lymph % (Auto) (9.0-44.0) % Edwards % (Auto) (0.0-8.0) % Eos % (Auto) (0.0-4.0) % Baso % (Auto) (0.0-2.0) % Neut # (Auto) (1.8-7.7) th/mm3 Lymph # (Auto) (1.0-4.8) th/mm3 Edwards # (Auto) (0.0-0.9) th/mm3 Eos # (Auto) (0.0-0.4) th/mm3 Baso # (Auto) (0.0-0.2) th/mm3 WBC Differential Differential Comment PT (9.8-11.6) sec INR Ratio APTT (24.3-30.1) sec Sodium (136-145) meq/L Potassium (3.5-5.1) meq/L Chloride (98-107) meq/L Carbon Dioxide (21.0-32.0) meq/L Anion Gap (5-15) meq/L BUN (7-18) mg/dL Creatinine (0.50-1.00) mg/dL Estimated GFR (>89) mL/min POC Glucose (68-110) mg/dl Random Glucose (74-106) mg/dL Osmolality (275-295) mosm/kg Calcium (8.5-10.1) mg/dL Total Bilirubin (0.2-1.0) mg/dL AST (15-37) U/L ALT (10-53) U/L Alkaline Phosphatase (45-117) U/L Ammonia 62 H (11-32) mcmol/L Total Creatine Kinase (26-192) U/L CK-MB (CK-2) (0.5-3.6) ng/mL Troponin I (0.02-0.05) ng/mL Total Protein (6.4-8.2) g/dL Albumin (3.4-5.0) g/dL Lipase (73-393) U/L TSH (0.358-3.740) uIU/mL Free T4 (0.76-1.46) ng/dL Free T3 (2.18-3.98) pg/mL Cortisol mcg/dL Urine Color Straw (Yellw/Straw) Urine Clarity Clear (Clear) Urine pH 6.0 (5.0-8.5) Ur Specific [place] 1.003 (1.002-1.035) Urine Protein Negative (Neg-Trace) mg/dL Urine Glucose (UA) Negative (Negative) mg/dL Urine Ketones Negative (Negative) mg/dL Urine Occult Blood Negative (Negative) Urine Nitrate Negative (Negative) Urine Bilirubin Negative (Negative) Urine Urobilinogen Less than 2 (Less than 2) mg/dL Ur Leukocyte Esterase Negative (Negative) Urine RBC Less than 1 (0-3) /hpf Urine WBC 1 (0-5) /hpf Ur Squamous Epith Cells <1 (0-5) /hpf Micro UA Comment Cath-culture not ind Ur Microscopic Review Not Reportable Urine Culture Comments Cath-cult not ind Urine Osmolality (300-1300) mosm/kg Ur Random Creatinine (27-300) mg/dL Ur Random Sodium meq/L Ur Random Uric Acid mg/dL Nasal Screen MRSA (PCR) (Negative) Urine Opiates Screen Neg (Neg) Ur Barbiturates Screen Neg (Neg) Ur Amphetamines Screen Neg (Neg) U Benzodiazepines Scrn Neg (Neg) Urine Cocaine Screen Neg (Neg) U Cannabinoids Screen Neg (Neg) Serum Alcohol (0-5) mg/dL 10/12/17 10/12/17 10/12/17 Range/Units 00:27 00:27 00:27 WBC (4.0-11.0) th/mm3 RBC (4.00-5.30) mil/mm3 Hgb (11.6-15.3) gm/dL Hct (35.0-46.0) % MCV (80.0-100.0) fL MCH (27.0-34.0) pg MCHC (32.0-36.0) % RDW (11.6-17.2) % Plt Count (150-450) th/mm3 MPV (7.0-11.0) fL Neut % (Auto) (16.0-70.0) % Lymph % (Auto) (9.0-44.0) % Edwards % (Auto) (0.0-8.0) % Eos % (Auto) (0.0-4.0) % Baso % (Auto) (0.0-2.0) % Neut # (Auto) (1.8-7.7) th/mm3 Lymph # (Auto) (1.0-4.8) th/mm3 Edwards # (Auto) (0.0-0.9) th/mm3 Eos # (Auto) (0.0-0.4) th/mm3 Baso # (Auto) (0.0-0.2) th/mm3 WBC Differential Differential Comment PT (9.8-11.6) sec INR Ratio APTT (24.3-30.1) sec Sodium (136-145) meq/L Potassium (3.5-5.1) meq/L Chloride (98-107) meq/L Carbon Dioxide (21.0-32.0) meq/L Anion Gap (5-15) meq/L BUN (7-18) mg/dL Creatinine (0.50-1.00) mg/dL Estimated GFR (>89) mL/min POC Glucose (68-110) mg/dl Random Glucose (74-106) mg/dL Osmolality (275-295) mosm/kg Calcium (8.5-10.1) mg/dL Total Bilirubin (0.2-1.0) mg/dL AST (15-37) U/L ALT (10-53) U/L Alkaline Phosphatase (45-117) U/L Ammonia (11-32) mcmol/L Total Creatine Kinase (26-192) U/L CK-MB (CK-2) (0.5-3.6) ng/mL Troponin I (0.02-0.05) ng/mL Total Protein (6.4-8.2) g/dL Albumin (3.4-5.0) g/dL Lipase (73-393) U/L TSH (0.358-3.740) uIU/mL Free T4 (0.76-1.46) ng/dL Free T3 (2.18-3.98) pg/mL Cortisol mcg/dL Urine Color (Yellw/Straw) Urine Clarity (Clear) Urine pH (5.0-8.5) Ur Specific [place] (1.002-1.035) Urine Protein (Neg-Trace) mg/dL Urine Glucose (UA) (Negative) mg/dL Urine Ketones (Negative) mg/dL Urine Occult Blood (Negative) Urine Nitrate (Negative) Urine Bilirubin (Negative) Urine Urobilinogen (Less than 2) mg/dL Ur Leukocyte Esterase (Negative) Urine RBC (0-3) /hpf Urine WBC (0-5) /hpf Ur Squamous Epith Cells (0-5) /hpf Micro UA Comment Ur Microscopic Review Urine Culture Comments Urine Osmolality 118 L (300-1300) mosm/kg Ur Random Creatinine 29 (27-300) mg/dL Ur Random Sodium 23 Cancelled meq/L Ur Random Uric Acid 10.2 mg/dL Nasal Screen MRSA (PCR) (Negative) Urine Opiates Screen (Neg) Ur Barbiturates Screen (Neg) Ur Amphetamines Screen (Neg) U Benzodiazepines Scrn (Neg) Urine Cocaine Screen (Neg) U Cannabinoids Screen (Neg) Serum Alcohol (0-5) mg/dL 10/12/17 10/12/17 10/12/17 Range/Units 00:27 02:10 02:10 WBC (4.0-11.0) th/mm3 RBC (4.00-5.30) mil/mm3 Hgb (11.6-15.3) gm/dL Hct (35.0-46.0) % MCV (80.0-100.0) fL MCH (27.0-34.0) pg MCHC (32.0-36.0) % RDW (11.6-17.2) % Plt Count (150-450) th/mm3 MPV (7.0-11.0) fL Neut % (Auto) (16.0-70.0) % Lymph % (Auto) (9.0-44.0) % Edwards % (Auto) (0.0-8.0) % Eos % (Auto) (0.0-4.0) % Baso % (Auto) (0.0-2.0) % Neut # (Auto) (1.8-7.7) th/mm3 Lymph # (Auto) (1.0-4.8) th/mm3 Edwards # (Auto) (0.0-0.9) th/mm3 Eos # (Auto) (0.0-0.4) th/mm3 Baso # (Auto) (0.0-0.2) th/mm3 WBC Differential Differential Comment PT (9.8-11.6) sec INR Ratio APTT (24.3-30.1) sec Sodium Cancelled (136-145) meq/L Potassium (3.5-5.1) meq/L Chloride (98-107) meq/L Carbon Dioxide (21.0-32.0) meq/L Anion Gap (5-15) meq/L BUN (7-18) mg/dL Creatinine (0.50-1.00) mg/dL Estimated GFR (>89) mL/min POC Glucose (68-110) mg/dl Random Glucose (74-106) mg/dL Osmolality 248 L (275-295) mosm/kg Calcium (8.5-10.1) mg/dL Total Bilirubin (0.2-1.0) mg/dL AST (15-37) U/L ALT (10-53) U/L Alkaline Phosphatase (45-117) U/L Ammonia (11-32) mcmol/L Total Creatine Kinase (26-192) U/L CK-MB (CK-2) (0.5-3.6) ng/mL Troponin I (0.02-0.05) ng/mL Total Protein (6.4-8.2) g/dL Albumin (3.4-5.0) g/dL Lipase (73-393) U/L TSH (0.358-3.740) uIU/mL Free T4 1.39 (0.76-1.46) ng/dL Free T3 2.46 (2.18-3.98) pg/mL Cortisol mcg/dL Urine Color (Yellw/Straw) Urine Clarity (Clear) Urine pH (5.0-8.5) Ur Specific [place] (1.002-1.035) Urine Protein (Neg-Trace) mg/dL Urine Glucose (UA) (Negative) mg/dL Urine Ketones (Negative) mg/dL Urine Occult Blood (Negative) Urine Nitrate (Negative) Urine Bilirubin (Negative) Urine Urobilinogen (Less than 2) mg/dL Ur Leukocyte Esterase (Negative) Urine RBC (0-3) /hpf Urine WBC (0-5) /hpf Ur Squamous Epith Cells (0-5) /hpf Micro UA Comment Ur Microscopic Review Urine Culture Comments Urine Osmolality (300-1300) mosm/kg Ur Random Creatinine (27-300) mg/dL Ur Random Sodium meq/L Ur Random Uric Acid Cancelled mg/dL Nasal Screen MRSA (PCR) (Negative) Urine Opiates Screen (Neg) Ur Barbiturates Screen (Neg) Ur Amphetamines Screen (Neg) U Benzodiazepines Scrn (Neg) Urine Cocaine Screen (Neg) U Cannabinoids Screen (Neg) Serum Alcohol (0-5) mg/dL 10/12/17 10/12/17 10/12/17 Range/Units 02:10 04:15 09:55 WBC (4.0-11.0) th/mm3 RBC (4.00-5.30) mil/mm3 Hgb (11.6-15.3) gm/dL Hct (35.0-46.0) % MCV (80.0-100.0) fL MCH (27.0-34.0) pg MCHC (32.0-36.0) % RDW (11.6-17.2) % Plt Count (150-450) th/mm3 MPV (7.0-11.0) fL Neut % (Auto) (16.0-70.0) % Lymph % (Auto) (9.0-44.0) % Edwards % (Auto) (0.0-8.0) % Eos % (Auto) (0.0-4.0) % Baso % (Auto) (0.0-2.0) % Neut # (Auto) (1.8-7.7) th/mm3 Lymph # (Auto) (1.0-4.8) th/mm3 Edwards # (Auto) (0.0-0.9) th/mm3 Eos # (Auto) (0.0-0.4) th/mm3 Baso # (Auto) (0.0-0.2) th/mm3 WBC Differential Differential Comment PT (9.8-11.6) sec INR Ratio APTT (24.3-30.1) sec Sodium 119 L* 122 L* (136-145) meq/L Potassium 3.3 L (3.5-5.1) meq/L Chloride 87 L (98-107) meq/L Carbon Dioxide 18.7 L (21.0-32.0) meq/L Anion Gap 13 (5-15) meq/L BUN 10 (7-18) mg/dL Creatinine 0.90 (0.50-1.00) mg/dL Estimated GFR 75 L (>89) mL/min POC Glucose (68-110) mg/dl Random Glucose 121 H (74-106) mg/dL Osmolality (275-295) mosm/kg Calcium 7.6 L (8.5-10.1) mg/dL Total Bilirubin (0.2-1.0) mg/dL AST (15-37) U/L ALT (10-53) U/L Alkaline Phosphatase (45-117) U/L Ammonia (11-32) mcmol/L Total Creatine Kinase (26-192) U/L CK-MB (CK-2) (0.5-3.6) ng/mL Troponin I 2.85 H* D (0.02-0.05) ng/mL Total Protein (6.4-8.2) g/dL Albumin (3.4-5.0) g/dL Lipase (73-393) U/L TSH (0.358-3.740) uIU/mL Free T4 (0.76-1.46) ng/dL Free T3 (2.18-3.98) pg/mL Cortisol mcg/dL Urine Color (Yellw/Straw) Urine Clarity (Clear) Urine pH (5.0-8.5) Ur Specific [place] (1.002-1.035) Urine Protein (Neg-Trace) mg/dL Urine Glucose (UA) (Negative) mg/dL Urine Ketones (Negative) mg/dL Urine Occult Blood (Negative) Urine Nitrate (Negative) Urine Bilirubin (Negative) Urine Urobilinogen (Less than 2) mg/dL Ur Leukocyte Esterase (Negative) Urine RBC (0-3) /hpf Urine WBC (0-5) /hpf Ur Squamous Epith Cells (0-5) /hpf Micro UA Comment Ur Microscopic Review Urine Culture Comments Urine Osmolality (300-1300) mosm/kg Ur Random Creatinine (27-300) mg/dL Ur Random Sodium meq/L Ur Random Uric Acid mg/dL Nasal Screen MRSA (PCR) Not detected (Negative) Urine Opiates Screen (Neg) Ur Barbiturates Screen (Neg) Ur Amphetamines Screen (Neg) U Benzodiazepines Scrn (Neg) Urine Cocaine Screen (Neg) U Cannabinoids Screen (Neg) Serum Alcohol (0-5) mg/dL 10/12/17 10/12/17 10/12/17 Range/Units 09:55 12:25 15:18 WBC (4.0-11.0) th/mm3 RBC (4.00-5.30) mil/mm3 Hgb (11.6-15.3) gm/dL Hct (35.0-46.0) % MCV (80.0-100.0) fL MCH (27.0-34.0) pg MCHC (32.0-36.0) % RDW (11.6-17.2) % Plt Count (150-450) th/mm3 MPV (7.0-11.0) fL Neut % (Auto) (16.0-70.0) % Lymph % (Auto) (9.0-44.0) % Edwards % (Auto) (0.0-8.0) % Eos % (Auto) (0.0-4.0) % Baso % (Auto) (0.0-2.0) % Neut # (Auto) (1.8-7.7) th/mm3 Lymph # (Auto) (1.0-4.8) th/mm3 Edwards # (Auto) (0.0-0.9) th/mm3 Eos # (Auto) (0.0-0.4) th/mm3 Baso # (Auto) (0.0-0.2) th/mm3 WBC Differential Differential Comment PT (9.8-11.6) sec INR Ratio APTT (24.3-30.1) sec Sodium 127 L (136-145) meq/L Potassium (3.5-5.1) meq/L Chloride (98-107) meq/L Carbon Dioxide (21.0-32.0) meq/L Anion Gap (5-15) meq/L BUN (7-18) mg/dL Creatinine (0.50-1.00) mg/dL Estimated GFR (>89) mL/min POC Glucose 156 H (68-110) mg/dl Random Glucose (74-106) mg/dL Osmolality (275-295) mosm/kg Calcium (8.5-10.1) mg/dL Total Bilirubin (0.2-1.0) mg/dL AST (15-37) U/L ALT (10-53) U/L Alkaline Phosphatase (45-117) U/L Ammonia 33 H (11-32) mcmol/L Total Creatine Kinase (26-192) U/L CK-MB (CK-2) (0.5-3.6) ng/mL Troponin I 3.65 H* D (0.02-0.05) ng/mL Total Protein (6.4-8.2) g/dL Albumin (3.4-5.0) g/dL Lipase (73-393) U/L TSH (0.358-3.740) uIU/mL Free T4 (0.76-1.46) ng/dL Free T3 (2.18-3.98) pg/mL Cortisol mcg/dL Urine Color (Yellw/Straw) Urine Clarity (Clear) Urine pH (5.0-8.5) Ur Specific [place] (1.002-1.035) Urine Protein (Neg-Trace) mg/dL Urine Glucose (UA) (Negative) mg/dL Urine Ketones (Negative) mg/dL Urine Occult Blood (Negative) Urine Nitrate (Negative) Urine Bilirubin (Negative) Urine Urobilinogen (Less than 2) mg/dL Ur Leukocyte Esterase (Negative) Urine RBC (0-3) /hpf Urine WBC (0-5) /hpf Ur Squamous Epith Cells (0-5) /hpf Micro UA Comment Ur Microscopic Review Urine Culture Comments Urine Osmolality (300-1300) mosm/kg Ur Random Creatinine (27-300) mg/dL Ur Random Sodium meq/L Ur Random Uric Acid mg/dL Nasal Screen MRSA (PCR) (Negative) Urine Opiates Screen (Neg) Ur Barbiturates Screen (Neg) Ur Amphetamines Screen (Neg) U Benzodiazepines Scrn (Neg) Urine Cocaine Screen (Neg) U Cannabinoids Screen (Neg) Serum Alcohol (0-5) mg/dL 10/12/17 10/12/17 Range/Units 15:18 18:00 WBC (4.0-11.0) th/mm3 RBC (4.00-5.30) mil/mm3 Hgb (11.6-15.3) gm/dL Hct (35.0-46.0) % MCV (80.0-100.0) fL MCH (27.0-34.0) pg MCHC (32.0-36.0) % RDW (11.6-17.2) % Plt Count (150-450) th/mm3 MPV (7.0-11.0) fL Neut % (Auto) (16.0-70.0) % Lymph % (Auto) (9.0-44.0) % [place] % (Auto) (0.0-8.0) % Eos % (Auto) (0.0-4.0) % Baso % (Auto) (0.0-2.0) % Neut # (Auto) (1.8-7.7) th/mm3 Lymph # (Auto) (1.0-4.8) th/mm3 [place] # (Auto) (0.0-0.9) th/mm3 Eos # (Auto) (0.0-0.4) th/mm3 Baso # (Auto) (0.0-0.2) th/mm3 WBC Differential Differential Comment PT (9.8-11.6) sec INR Ratio APTT (24.3-30.1) sec Sodium (136-145) meq/L Potassium (3.5-5.1) meq/L Chloride (98-107) meq/L Carbon Dioxide (21.0-32.0) meq/L Anion Gap (5-15) meq/L BUN (7-18) mg/dL Creatinine (0.50-1.00) mg/dL Estimated GFR (>89) mL/min POC Glucose 123 H (68-110) mg/dl Random Glucose (74-106) mg/dL Osmolality (275-295) mosm/kg Calcium (8.5-10.1) mg/dL Total Bilirubin (0.2-1.0) mg/dL AST (15-37) U/L ALT (10-53) U/L Alkaline Phosphatase (45-117) U/L Ammonia (11-32) mcmol/L Total Creatine Kinase (26-192) U/L CK-MB (CK-2) (0.5-3.6) ng/mL Troponin I (0.02-0.05) ng/mL Total Protein (6.4-8.2) g/dL Albumin (3.4-5.0) g/dL Lipase (73-393) U/L TSH (0.358-3.740) uIU/mL Free T4 (0.76-1.46) ng/dL Free T3 (2.18-3.98) pg/mL Cortisol 20.2 mcg/dL Urine Color (Yellw/Straw) Urine Clarity (Clear) Urine pH (5.0-8.5) Ur Specific [place] (1.002-1.035) Urine Protein (Neg-Trace) mg/dL Urine Glucose (UA) (Negative) mg/dL Urine Ketones (Negative) mg/dL Urine Occult Blood (Negative) Urine Nitrate (Negative) Urine Bilirubin (Negative) Urine Urobilinogen (Less than 2) mg/dL Ur Leukocyte Esterase (Negative) Urine RBC (0-3) /hpf Urine WBC (0-5) /hpf Ur Squamous Epith Cells (0-5) /hpf Micro UA Comment Ur Microscopic Review Urine Culture Comments Urine Osmolality (300-1300) mosm/kg Ur Random Creatinine (27-300) mg/dL Ur Random Sodium meq/L Ur Random Uric Acid mg/dL Nasal Screen MRSA (PCR) (Negative) Urine Opiates Screen (Neg) Ur Barbiturates Screen (Neg) Ur Amphetamines Screen (Neg) U Benzodiazepines Scrn (Neg) Urine Cocaine Screen (Neg) U Cannabinoids Screen (Neg) Serum Alcohol (0-5) mg/dL Imaging Data Radiologist's impression: Chest X-Ray 10/12/17 00:17 CONCLUSION: No evidence of acute cardiopulmonary disease. Head CT 10/12/17 00:17 CONCLUSION: Negative noncontrast head CT. . ECG Data Attestation: I personally reviewed and interpreted this ECG as follows: Interpretation: The patient had an EKG done on arrival. The patient's EKG shows a sinus rhythm heart rate of 70 with frequent supraventricular premature complexes, QRS duration is 101 ms, QTC [address]-T wave abnormalities, ST segment, 2, aVL, V2, V3, V4, V5, V6. Discharge Plan Discharge Disposition Patient Disposition: 30 Still Patient Discharge Details Diagnosis: New onset seizure, Acute hyponatremia, Acute hypokalemia Physicians Team ED Provider: Nahomi Cabello Primary Care Provider: UNKNOWN, Attending Provider: Thea Seals Other Providers: Landon Dias ; Mayelin Dick ; Quoc Rawls Discharge Interventions Interventions: ED Discharge Assessment Last Done: 10/12/17 04:07 Status ED Status: Left Department Discharge Information Discharge Date/Time: 10/12/17 04:07
[2017-10-12 01:06] LABS: Amphetamine Screen,Urine Neg (Neg); Barbiturate Screen,Urine Neg (Neg); Cannabinoid Screen,Urine Neg (Neg); Cocaine Screen,Urine Neg (Neg)
[2017-10-12 01:06] LABS: Alanine Aminotransferase 18 U/L (10-53); Albumin 3.3 g/dL (3.4-5.0); Anion Gap 17 meq/L (5-15); Aspartate Aminotransferase 26 U/L (15-37); Blood Urea Nitrogen 10 mg/dL (7-18); Calcium 8.1 mg/dL (8.5-10.1); Carbon Dioxide 18.8 meq/L (21.0-32.0); Chloride 80 meq/L (98-107); Glomerular Filtration Rate 56 mL/min (>89); Glucose,Random 175 mg/dL (74-106); Lipase 210 U/L (73-393)
[2017-10-12 01:07] LABS: Opiate Screen,Urine Neg (Neg)
[2017-10-12 01:08] LABS: Potassium 2.8 meq/L (3.5-5.1); Sodium 116 meq/L (136-145)
[2017-10-12] MEDS ORDERED: Sodium Bicarbonate 8.4% Inj 50 MEQ/50 ML Syringe IV.PUSH ONE (01:10)
[2017-10-12] MEDS ORDERED: Thiamine Inj 100 MG in Sodium Chlor 0.9% Inj 100 ML IV.SIG ONE (01:10)
[2017-10-12] MEDS ORDERED: Potassium Chlor 20 mEq Premix 20 MEQ/100 ML PIGGYBACK IV.SIG ONE (01:10)
[2017-10-12] MEDS ORDERED: Naloxone Inj 0.4 MG/ML Vial IV.PUSH ONE (01:10)
--- NOTE | 2017-10-12 01:12 | XR ---
EXAM DATE: 10/12/2017 1:08 AM EDT AGE/SEX: 67 years / Female INDICATIONS: Cough and weakness. CLINICAL DATA: This is the patient's initial encounter. Patient reports that signs and symptoms have been present for 1 day and indicates a pain score of 0/10. MEDICAL/SURGICAL HISTORY: None. None. COMPARISON: [facility] [place] & [place], 12/13/2013. . FINDINGS: A single AP view of the chest demonstrates the lungs to be symmetrically aerated without evidence of mass, infiltrate or effusion. The cardiomediastinal contours are unremarkable. Osseous structures a re intact. CONCLUSION: No evidence of acute cardiopulmonary disease. Electronically signed by: Rhys Bland MD 10/12/2017 1:11 AM EDT
[2017-10-12 01:32] LABS: Alkaline Phosphatase 55 U/L (45-117); Creatine Kinase 102 U/L (26-192); Troponin I 0.22 ng/mL (0.02-0.05)
[2017-10-12 01:48] LABS: Creatine Kinase MB 1.9 ng/mL (0.5-3.6)
--- NOTE | 2017-10-12 01:50 | CT ---
EXAM DATE: 10/12/2017 1:39 AM EDT AGE/SEX: 67 years / Female INDICATIONS: Possible seizure, altered mental status. CLINICAL DATA: This is the patient's initial encounter. Patient reports that signs and symptoms have been present for 1 day and indicates a pain score of 0/10. MEDICAL/SURGICAL HISTORY: Hypertension. Hypercholesterolemia. None. RADIATION DOSE: 39.24 CTDI (mGy) COMPARISON: No prior exams available for comparison. TECHNIQUE: CT of the head without contrast. Using automated exposure control and adjustment of the mA and/or kV according to patient size, radiation dose was kept as low as reasonably achievable to ob tain optimal diagnostic quality images. DICOM format image data is available electronically for revi ew and comparison. FINDINGS: Cerebrum: The ventricles are normal for age. No evidence of midline shift, mass lesion, hemorrhage or acute infarction. No extraaxial fluid collections are seen. Posterior Fossa: The cerebellum and brainstem are intact. The 4th ventricle is midline. The cerebe llopontine angle is unremarkable. Extracranial: The visualized portion of the orbits is intact. Skull: The calvaria is intact. No evidence of skull fracture. CONCLUSION: Negative noncontrast head CT. . Electronically signed by: Rhys Bland MD 10/12/2017 1:48 AM EDT
--- NOTE | 2017-10-12 02:43 | P.HPCC ---
History of Present Illness Service: Critical care medicine Primary Care Physician: UNKNOWN Chief Complaint: Seizure History of Present Illness: 67 year old -[place] female with past medical history of hypertension, HLD who presented to [facility] emergency department via [facility] following a seizure and is now being admitted to the health unit clerk service due to hyponatremia. She returned from her niece's house this evening and was in her baseline state of good health. She was sitting watching TV with her and having difficulty with operating the TV remote. She then had tonic clonic movements. No head trauma. [facility] arrived and she was lethargic, not able to provide history. She had additional tonic-clonic seizure and was given Versed 2 mg per EVAC. Upon arrival she was lethargic but mental status has improved while in the emergency department and now she is communicating and providing some history. No prior history of seizures. CT brain negative. Sodium is 116 and she is hypokalemic 2.8 and creatinine 1.18 (baseline 0.79). TSH 8.8, no hx of thyroid disease. Her PCP told her to increase salt intake about 2-3 months ago. She is an almost daily drinker of 1-2 beers for most of her life. She is on clonidine and an unknown additional antihypertensive medication. He does not think it was an MARCOS inhibitor or diuretic but she cannot name what medication it is. Prior recrods from 2017 was on lisinopril/HCTZ which could cause hyponatremia. Denies nausea, vomiting, diarrhea, excessive fluid intake, unintentional weight loss or gain, night sweats. She has had a slight cough, former smoker. No lung mass on CXR. Inpatient Certification: I certify that the inpatient services were ordered in accordance with Medicare regulations governing the order. This includes certification that hospital inpatient services are reasonable and necessary and in the case of services not specified as inpatient-only under 42 CFR 419.22(n), that they are appropriately provided as inpatient services in accordance to with the 2-midnight benchmark under 43 CFR 412.3(e) Review of Systems All other systems reviewed negative except as stated in HPI PMFSH - History History Provided By: Family Member, Seafood Harvester / EMT - Medical History Medical History: Medical History (Last Reviewed 10/12/17 @ 01:31 by Nahomi Cabello MD) High cholesterol Hypertension - Surgical History Surgical History: Surgical History (Last Updated 10/12/17 @ 02:54 by Thea Seals MD) No history of previous surgery - Family History Family History: Family History (Last Updated 10/12/17 @ 02:55 by Thea Seals MD) Brother Laryngeal cancer Father Diabetes mellitus - Tobacco History Second Hand Smoke Exposure: No () Tobacco Use In Past 30 Days: No Smoking Status: Former smoker Smoking End Date: 3-4 years ago - Alcohol History How Often Do You Have a Drink Containing Alcohol: 4 or more times a week (1-2 beers) - Substance Use History Substance History: No History of Abuse - Travel History Recent Travel in the [place] Within the Last 8 Weeks: No Recent Travel Out of the Country Within the Last 8 Weeks: No - Immunization History Tetanus Immunization: Unable to Assess Hx Influenza Vaccine This Season: Unable to Assess Medications and Allergies Active Medications: Active Medications Sodium Chloride (Ns Inj) 1,000 mls @ 125 mls/hr IV.CONT .Q8H MARY Last Admin: 10/12/17 01:41 Dose: Not Given Potassium Chloride (Kcl 20 Meq Premix Inj) 20 meq in 100 mls @ 50 mls/hr IV.SIG ONCE ONE Stop: 10/12/17 03:09 Last Admin: 10/12/17 02:09 Dose: 50 mls/hr Sodium Chloride (Ns Flush) 2 ml IV.FLUSH PRN PRN PRN Reason: FLUSH AFTER USING IV ACCESS Allergies Allergy/AdvReac Type Severity Reaction Status Date / Time No Known Allergies Allergy Verified 10/12/17 00:17 Home Medications Medication Instructions Recorded Confirmed Type atorvastatin 10 mg PO DAILY 10/12/17 10/12/17 History clonidine HCl 0.1 mg PO DAILY 10/12/17 10/12/17 History lisinopril 10 mg PO DAILY 10/12/17 10/12/17 History Results - Labs CBC & Chem 7: 10/12/17 00:25 10/12/17 02:10 Labs: Short CBC 10/12/17 Range/Units 00:25 WBC 8.4 (4.0-11.0) th/mm3 Hgb 13.2 (11.6-15.3) gm/dL Hct 37.2 (35.0-46.0) % Plt Count 183 (150-450) th/mm3 BMP 10/12/17 00:25 Sodium 116 L* Potassium 2.8 L* Chloride 80 L Carbon Dioxide 18.8 L BUN 10 Creatinine 1.16 H Calcium 8.1 L Cardiac Enzymes 10/12/17 Range/Units 00:25 Total Creatine Kinase 102 (26-192) U/L CK-MB (CK-2) 1.9 (0.5-3.6) ng/mL Troponin I 0.22 H (0.02-0.05) ng/mL Liver Function 10/12/17 Range/Units 00:25 Total Bilirubin 0.9 (0.2-1.0) mg/dL AST 26 (15-37) U/L ALT 18 (10-53) U/L Alkaline Phosphatase 55 (45-117) U/L Albumin 3.3 L (3.4-5.0) g/dL Urine 10/12/17 Range/Units 00:27 Urine Color Straw (Yellw/Straw) Urine Clarity Clear (Clear) Urine pH 6.0 (5.0-8.5) Ur Specific Martin 1.003 (1.002-1.035) Urine Protein Negative (Neg-Trace) mg/dL Urine Glucose (UA) Negative (Negative) mg/dL - Imaging Impressions Chest X-Ray 10/12/17 00:17 CONCLUSION: No evidence of acute cardiopulmonary disease. Head CT 10/12/17 00:17 CONCLUSION: Negative noncontrast head CT. . Exam Vital signs: Vital Signs 10/12/17 00:17 10/12/17 01:44 Temperature 97.8 F Pulse Rate 71 90 Respiratory Rate 16 16 Blood Pressure 101/56 L 157/90 H Pulse Oximetry 100 100 Intake & Output 10/11/17 10/11/17 10/12/17 06:59 18:59 06:59 Intake Total 100 / 100 Balance 100 / 100 Weight 65.771 kg Intake: IV 100 / 100 Thiamine Inj 100 MG In NS Inj 100 / 100 100 ML @ 100 mls/hr IV.SIG ONCE ONE Rx#:[id number] Narrative: GENERAL: Well-nourished, well-developed patient who is laying in ED stretcher. She is a little sleepy but arouses easily to voice. SKIN: Warm and dry. HEAD: Atraumatic. Normocephalic. EYES: Pupils equal and round, 3 mm reactive. No scleral icterus. No injection or drainage. ENT: No nasal bleeding or discharge. Mucous membranes pink and moist. NECK: Trachea midline. Jugular vein flat. CARDIOVASCULAR: Regular rate and rhythm. No murmurs rubs or gallops. RESPIRATORY: No accessory muscle use. Clear to auscultation. Breath sounds equal bilaterally. On RA. GASTROINTESTINAL: Abdomen soft, non-tender, nondistended. Bowel sounds present. MUSCULOSKELETAL: Extremities without clubbing, cyanosis, or edema. No obvious deformities. NEUROLOGICAL: Awake and alert. Oriented to self, [facility], circumstance , year "1999 something". no obvious cranial nerve deficits. Strength 5/5, sensation intact. Caprini VTE Risk Assessment Caprini VTE Risk Assessment: Moderate/High Risk (score >= 2) Caprini Risk Assessment Model: Point Value = 1 Point Value = 2 Point Value = 3 Point Value = 5 Age 41-60 Minor surgery BMI > 25 kg/m2 Swollen legs Varicose veins or History of unexplained or recurrent spontaneous Oral contraceptives or hormone replacement Sepsis (< 1 month) Serious lung disease, including pneumonia (< 1 month) Abnormal pulmonary function Acute myocardial infarction Congestive heart failure (< 1 month) History of inflammatory bowel disease Medical patient at bed rest Age 61-74 Arthroscopic surgery Major open surgery (> 45 min) Laparoscopic surgery (> 45 min) Malignancy Confined to bed (> 72 hours) Immobilizing plaster cast Central venous access Age >= 75 History of VTE Family history of VTE Factor V Leiden Prothrombin [id number] Lupus anticoagulant Anticardiolipin antibodies Elevated serum homocysteine Heparin-induced thrombocytopenia Other congenital or acquired thrombophilia Stroke (< 1 month) Elective arthroplasty Hip, pelvis, or leg fracture Acute spinal cord injury (< 1 month) Prophylaxis Regimen: Total Risk Factor Score Risk Level Prophylaxis Regimen 0-1 Low Early ambulation 2 Moderate Order ONE of the following: *Sequential Compression Device (SCD) *Heparin 5000 units SQ BID 3-4 Higher Order ONE of the following medications: *Heparin 5000 units SQ TID *Enoxaparin/Lovenox 40 mg SQ daily (WT < 150 kg, CrCl > 30 mL/min) *Enoxaparin/Lovenox 30 mg SQ daily (WT < 150 kg, CrCl > 10-29 mL/min) *Enoxaparin/Lovenox 30 mg SQ BID (WT < 150 kg, CrCl > 30 mL/min) AND/OR *Sequential Compression Device (SCD) 5 or more Highest Order ONE of the following medications: *Heparin 5000 units SQ TID (Preferred with Epidurals) *Enoxaparin/Lovenox 40 mg SQ daily (WT < 150 kg, CrCl > 30 mL/min) *Enoxaparin/Lovenox 30 mg SQ daily (WT < 150 kg, CrCl > 10-29 mL/min) *Enoxaparin/Lovenox 30 mg SQ BID (WT < 150 kg, CrCl > 30 mL/min) AND *Sequential Compression Device (SCD) Assessment and Plan - Assessment and Plan Plan: NEURO: Acute seizure May have been secondary to hyponatremia. Mental status now baseline. No indication for anticonvulsant therapy currently. CT brain negative Almost daily alcohol (reportedly 1-2 beers) Thiamine 100 mg p.o. daily. Monitor for alcohol withdrawal. Ativan prn seizure RESP: Prior history of tobacco abuse CV: Essential hypertension She knows she is on clonidine 0.1 mg p.o. twice daily. Will continue that. Her is supposed to bring in the list of the rest of her medications. GI: Regular diet FEN/RENAL: Chronic hyponatremia BUBBA, pre-renal Workup not fully completed yet, but points toward diuretic-induced with low urine osm and sodium and pre-renal. Received 2 L NS bolus in the ED. D5 1/2 NS with 20 KCL/L until creatinine normalized, monitor sodium q6 hours, target sodium correction no more than 8 MEQ over next 24 hours. ID: No signs or symptoms of infection currently. HEME: No acute hematologic issues ENDO: Mild hyperglycemia without history of diabetes Monitor and use low-dose insulin sliding scale if needed. TSH is elevated but free T3 and free T4 are well within normal range and she denies symptoms. May be subclinical hypothyroidism. Followup labs in a few months as outpatient. F/u cortisol PROPH: Lovenox 40 mg subcu daily for DVT prophylaxis. Stress ulcer prophylaxis is not indicated. ACCESS: Peripheral IV providing adequate access at this time. FULL CODE Level 3 H&P
[2017-10-12 03:09] LABS: Calcium 7.6 mg/dL (8.5-10.1); Carbon Dioxide 18.7 meq/L (21.0-32.0); Potassium 3.3 meq/L (3.5-5.1)
[2017-10-12] MEDS ORDERED: Potassium Chloride 25 MEQ Effervescent Tablet PO PRN (03:21)
[2017-10-12] MEDS ORDERED: Potassium Phosphate 500 MG Soluble Tablet PO PRN ×2 (03:21)
[2017-10-12] MEDS ORDERED: Sodium Phosphate Inj 30 MMOL in Sodium Chlor 0.9% Inj 250 ML IV.SIG PRN (03:21)
[2017-10-12] MEDS ORDERED: Acetaminophen 325 MG Tablet PO PRN (03:21)
[2017-10-12] MEDS ORDERED: Magnesium Sulfate Inj 2 GM in Sodium Chlor 0.9% Inj 96 ML IV.SIG PRN (03:21)
[2017-10-12] MEDS ORDERED: Magnesium Sulfate Inj 4 GM in Sodium Chlor 0.9% Inj 92 ML IV.SIG PRN (03:21)
[2017-10-12] MEDS ORDERED: Potassium Phosphate Inj 30 MMOL in Sodium Chlor 0.9% Inj 250 ML IV.SIG PRN (03:21)
[2017-10-12] MEDS ORDERED: Bisacodyl 10 MG Supp RECTAL PRN (03:21)
[2017-10-12] MEDS ORDERED: Potassium Chlor 40 mEq Premix 40 MEQ/100 ML PIGGYBACK IV.SIG PRN ×2 (03:21)
[2017-10-12] MEDS ORDERED: Potassium Chlor 20 mEq Premix 20 MEQ/100 ML PIGGYBACK IV.SIG PRN (03:21)
[2017-10-12] MEDS ORDERED: Magnesium Oxide 400 MG Tablet PO PRN (03:21)
[2017-10-12] MEDS ORDERED: Dextrose 50% in Water 50 ML Vial IV.PUSH PRN (03:27)
[2017-10-12] MEDS ORDERED: KCL 20 mEq/D5W/NaCl 0.45% Inj 1,000 ML IV.CONT SCH (03:30)
[2017-10-12] MEDS ORDERED: Enoxaparin Inj 40 MG/0.4 ML Syringe SQ SCH ×3 (03:30→04:00)
[2017-10-12 03:42] LABS: Free T4 (Free Thyroxine) 1.39 ng/dL (0.76-1.46); Triiodothyronine (T3) Free 2.46 pg/mL (2.18-3.98)
[2017-10-12] MEDS: Senna/Docusate Sodium 8.6/50 MG Tablet PO SCH ×2 (09:38→20:07)
[2017-10-12] MEDS: Labetalol HCl Inj 100 MG/20 ML Vial IV.PUSH PRN (10:19)
[2017-10-12 11:13] LABS: Troponin I 2.85 ng/mL (0.02-0.05)
--- NOTE | 2017-10-12 12:00 | ECG ---
Date Performed: 10/12/2017 Time Performed: 00:07:54 PTAGE: 67 years EKG: Sinus rhythm WITH FIRST DEGREE AV BLOCK WITH FREQUENT SUPRAVENTRICULAR PREMATURE COMPLEXES LEFT VENTRICULAR HYPER TROPHY AND ST-T CHANGE ABNORMAL ECG Since the PREVIOUS TRACING , no significant change noted DOCTOR: Maurilio Forbes Interpretating Date/Time 10/12/2017 11:59:23
[2017-10-12] MEDS ORDERED: KCL 20 mEq/D5W/NaCl 0.225% Inj 1,000 ML IV.CONT SCH (12:30)
[2017-10-12] MEDS: Insulin NovoLOG Aspart Correctional Sugar Inj SQ SCH ×4 (12:34→21:26)
[2017-10-12] MEDS: Carvedilol 6.25 MG Tablet PO SCH ×2 (12:40→20:07)
[2017-10-12] MEDS: amLODIPine 10 MG Tablet PO SCH (12:40)
[2017-10-12 16:45] LABS: Troponin I 3.65 ng/mL (0.02-0.05)
[2017-10-12] MEDS ORDERED: Desmopressin Inj 4 MCG/ML Ampul SQ ONE (18:00)
[2017-10-12] MEDS: Heparin Drip 25,000 UNIT/250 ML BAG IV.CONT PRN (19:54)
[2017-10-12] MEDS: KCL 20 mEq/Dextrose 5% Inj 1,000 ML IV.CONT SCH (19:55)
[2017-10-13 03:34] LABS: Baso # (Auto) 0.1 th/mm3 (0.0-0.2); Baso % (Auto) 0.8 % (0.0-2.0); Eos # (Auto) 0.1 th/mm3 (0.0-0.4); Eos % (Auto) 0.9 % (0.0-4.0); Hematocrit 38.4 % (35.0-46.0); Hemoglobin 13.1 gm/dL (11.6-15.3); Lymph # (Auto) 1.8 th/mm3 (1.0-4.8); Lymph % (Auto) 25.2 % (9.0-44.0); Mean Corpuscular HGB Conc 34.1 % (32.0-36.0); Mean Corpuscular Hemoglobin 32.2 pg (27.0-34.0); Mean Corpuscular Volume 94.3 fL (80.0-100.0); Mean Platelet Volume 8.7 fL (7.0-11.0); Mono # (Auto) 0.4 th/mm3 (0.0-0.9); Neut # (Auto) 4.9 th/mm3 (1.8-7.7); Neut % (Auto) 68.1 % (16.0-70.0); Platelet Count 143 th/mm3 (150-450); Red Blood Count 4.07 mil/mm3 (4.00-5.30); Red Cell Distribution Width 12.9 % (11.6-17.2); White Blood Count 7.2 th/mm3 (4.0-11.0)
[2017-10-13 03:37] LABS: Alanine Aminotransferase 17 U/L (10-53); Albumin 2.6 g/dL (3.4-5.0); Alkaline Phosphatase 55 U/L (45-117); Anion Gap 14 meq/L (5-15); Aspartate Aminotransferase 26 U/L (15-37); Blood Urea Nitrogen 7 mg/dL (7-18); Calcium 8.3 mg/dL (8.5-10.1); Carbon Dioxide 19.5 meq/L (21.0-32.0); Chloride 97 meq/L (98-107); Glomerular Filtration Rate Greater Than 89 mL/min (>89); Glucose,Random 112 mg/dL (74-106); Magnesium 1.6 mg/dL (1.5-2.5); Phosphorus 2.1 mg/dL (2.5-4.9); Potassium 3.2 meq/L (3.5-5.1); Total Protein 6.2 g/dL (6.4-8.2)
[2017-10-13 03:45] LABS: Sodium 130 meq/L (136-145)
[2017-10-13 03:50] LABS: Troponin I 2.58 ng/mL (0.02-0.05)
[2017-10-13] MEDS: Potassium Chlor 20 mEq Premix 20 MEQ/100 ML PIGGYBACK IV.SIG PRN ×3 (06:51→11:33)
[2017-10-13] MEDS: Carvedilol 6.25 MG Tablet PO SCH (09:13)
[2017-10-13] MEDS: Insulin NovoLOG Aspart Correctional Sugar Inj SQ SCH ×4 (09:13→20:20)
[2017-10-13] MEDS: Senna/Docusate Sodium 8.6/50 MG Tablet PO SCH ×2 (09:14→20:20)
[2017-10-13] MEDS: amLODIPine 10 MG Tablet PO SCH (09:14)
[2017-10-13] MEDS: Labetalol HCl Inj 100 MG/20 ML Vial IV.PUSH PRN (11:05)
[2017-10-13] MEDS: KCL 20 mEq/Dextrose 5% Inj 1,000 ML IV.CONT SCH (11:24)
--- NOTE | 2017-10-13 11:49 | P.PNIM ---
Subjective Interval history: The pt said she wanted to go home soon. 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 She says she has not been up out of bed. She has been eating. She denies drinking alcohol. Discussed with nurse at the bedside. Physical Exam Vital signs: Vital Signs 10/12/17 12:00 10/12/17 12:59 10/12/17 16:00 Temperature 97.7 F 97.6 F Pulse Rate 60 64 Respiratory Rate 15 23 Blood Pressure 169/96 H 156/92 H Pulse Oximetry 100 98 100 10/12/17 20:00 10/12/17 20:05 10/13/17 00:00 Temperature 98.2 F 98.2 F Pulse Rate 65 58 L Respiratory Rate 24 18 Blood Pressure 154/91 H 121/75 Pulse Oximetry 100 100 100 10/13/17 04:00 10/13/17 08:00 Temperature 98.2 F 98.7 F Pulse Rate 63 71 Respiratory Rate 14 18 Blood Pressure 150/68 H 160/85 H Pulse Oximetry 100 100 Intake & Output 10/12/17 10/13/17 10/13/17 18:59 06:59 18:59 Intake Total 960 / 960 1200 / 1200 1200 / 1200 Output Total 1725 / 1725 Balance -765 / -765 1200 / 1200 1200 / 1200 Weight 59.9 kg Intake: IV 1200 / 1200 D5W + KCL 20 mEq Inj 1,000 ML @ 1000 / 1000 60 mls/hr IV.CONT .[id number] MARY Rx#:[id number] KCl 20 mEq Premix Inj 20 meq In 200 / 200 100 ml @ 50 mls/hr IV.SIG Q2H PRN Rx#:[id number] Oral 960 / 960 1200 / 1200 Output: Urine Amount (Catheter) 1725 / 1725 Female External 1725 / 1725 Other: Date of Last Bowel Movement 10/13/17 # Bowel Movements 0 0 Narrative: GENERAL: Well-nourished, well-developed patient in NAD. SKIN: Warm and dry. HEAD: Atraumatic. Normocephalic. EYES: Pupils equal and round, 3 mm reactive. No scleral icterus. No injection or drainage. ENT: No nasal bleeding or discharge. Mucous membranes pink and moist. NECK: Trachea midline. CARDIOVASCULAR: Regular rate and rhythm. No murmurs rubs or gallops. RESPIRATORY: No accessory muscle use. Clear to auscultation. Breath sounds equal bilaterally. GASTROINTESTINAL: Abdomen soft, non-tender, nondistended. Bowel sounds present. MUSCULOSKELETAL: Extremities without clubbing, cyanosis, or edema. No obvious deformities. NEUROLOGICAL: Awake and alert. No obvious cranial nerve deficits. Strength 5/5 , sensation intact. - Urinary Catheter Management Female External Cath placed during this visit: no Results - Labs CBC & Chem 7: 10/13/17 02:36 10/13/17 02:36 Laboratory Results - last 24 hr 10/12/17 10/12/17 10/12/17 12:25 15:18 15:18 WBC RBC Hgb Hct MCV MCH MCHC RDW Plt Count MPV Neut % (Auto) Lymph % (Auto) [place] % (Auto) Eos % (Auto) Baso % (Auto) Neut # (Auto) Lymph # (Auto) [place] # (Auto) Eos # (Auto) Baso # (Auto) WBC Differential Differential Comment Hematology Comments APTT Sodium 127 L Potassium Chloride Carbon Dioxide Anion Gap BUN Creatinine Estimated GFR POC Glucose 156 H Random Glucose Calcium Phosphorus Magnesium Total Bilirubin AST ALT Alkaline Phosphatase Troponin I 3.65 H* D Total Protein Albumin Cortisol 20.2 10/12/17 10/12/17 10/12/17 18:00 18:55 20:17 WBC RBC Hgb Hct MCV MCH MCHC RDW Plt Count MPV Neut % (Auto) Lymph % (Auto) [place] % (Auto) Eos % (Auto) Baso % (Auto) Neut # (Auto) Lymph # (Auto) [place] # (Auto) Eos # (Auto) Baso # (Auto) WBC Differential Differential Comment Hematology Comments APTT 29.2 Sodium Potassium Chloride Carbon Dioxide Anion Gap BUN Creatinine Estimated GFR POC Glucose 123 H 128 H Random Glucose Calcium Phosphorus Magnesium Total Bilirubin AST ALT Alkaline Phosphatase Troponin I Total Protein Albumin Cortisol 10/12/17 10/13/17 10/13/17 23:43 02:36 02:36 WBC 7.2 RBC 4.07 Hgb 13.1 Hct 38.4 MCV 94.3 MCH 32.2 MCHC 34.1 RDW 12.9 Plt Count 143 L MPV 8.7 Neut % (Auto) 68.1 Lymph % (Auto) 25.2 [place] % (Auto) 5.0 Eos % (Auto) 0.9 Baso % (Auto) 0.8 Neut # (Auto) 4.9 Lymph # (Auto) 1.8 [place] # (Auto) 0.4 Eos # (Auto) 0.1 Baso # (Auto) 0.1 WBC Differential . Differential Comment Auto diff final Hematology Comments APTT 35.9 H D Sodium 130 L Potassium 3.2 L Chloride 97 L D Carbon Dioxide 19.5 L Anion Gap 14 BUN 7 Creatinine 0.76 Estimated GFR Greater than 89 POC Glucose Random Glucose 112 H Calcium 8.3 L Phosphorus 2.1 L Magnesium 1.6 Total Bilirubin 0.7 AST 26 ALT 17 Alkaline Phosphatase 55 Troponin I 2.58 H* D Total Protein 6.2 L D Albumin 2.6 L D Cortisol 10/13/17 10/13/17 07:20 09:08 WBC RBC Hgb Hct MCV MCH MCHC RDW Plt Count MPV Neut % (Auto) Lymph % (Auto) [place] % (Auto) Eos % (Auto) Baso % (Auto) Neut # (Auto) Lymph # (Auto) [place] # (Auto) Eos # (Auto) Baso # (Auto) WBC Differential Differential Comment Hematology Comments APTT 25.2 D Sodium Potassium Chloride Carbon Dioxide Anion Gap BUN Creatinine Estimated GFR POC Glucose 130 H Random Glucose Calcium Phosphorus Magnesium Total Bilirubin AST ALT Alkaline Phosphatase Troponin I Total Protein Albumin Cortisol Assessment and Plan - Plan Acute seizure May have been secondary to hyponatremia. Mental status now baseline. No indication for anticonvulsant therapy currently. CT brain negative. Almost daily alcohol (reportedly 1-2 beers), although pt currently denies. Thiamine 100 mg p.o. daily. Monitor for alcohol withdrawal. Ativan prn seizure. NSTEMI Essential hypertension Cardiology consult appreciated. -continue cardiac regimen. Titrate as needed. -continue heparin gtt. -further management per cardiology. -telemetry. -Vasotec as needed. Chronic hyponatremia BUBBA, pre-renal Resolved. -holding home HCTZ. Mild hyperglycemia Without history of diabetes. -Monitor and use low-dose insulin sliding scale if needed. -check A1c. TSH elevated Free T3 and free T4 are well within normal range and she denies symptoms. May be subclinical hypothyroidism. -Followup labs in a few months as outpatient. PROPH: Heparin gtt
[2017-10-13] MEDS ORDERED: Lisinopril 10 MG Tablet PO SCH (12:15)
--- NOTE | 2017-10-13 13:25 | MB ---
cc: Quoc Rawls DO DATE: 10/13/2017 REASON FOR CONSULTATION: Elevated troponin. HISTORY OF PRESENT ILLNESS: Regi Nicolas is a pleasant 67-year-old female who presented to [facility] following a seizure. Apparently, she was previously at her niece's house and in good health. She was watching TV with her and started having difficulty with operating the TV remote, then she started having tonic-clonic movements. Upon arrival, the patient was lethargic and unable to provide a history. She continued to improve, but was found to have a sodium of 116 in the initial workup. She was admitted to the ICU. During that workup, she was found to have an elevated troponin. In seeing her, she has no complaints of chest pain or shortness of breath. She states that she has had no chest pain or shortness of breath recently. PAST MEDICAL HISTORY: 1. Hyperlipidemia. 2. Hypertension. PAST SURGICAL HISTORY: Denies. ALLERGIES: NO KNOWN DRUG ALLERGIES. MEDICATIONS: 1. Clonidine 0.1 mg b.i.d. 2. Lipitor 40 mg every night. 3. Potassium 20 mEq daily. 4. Lisinopril/hydrochlorothiazide 20/25 mg daily. FAMILY HISTORY: Denies premature coronary artery disease or sudden cardiac within the family. SOCIAL HISTORY: The patient drinks 1-2 beers a day at least. Denies drug abuse. She smoked for a number of years, but quit 3-4 years ago. REVIEW OF SYSTEMS: Fourteen systems were reviewed including osteopathic. Pertinent positives and negatives above, otherwise negative. PHYSICAL EXAMINATION: VITAL SIGNS: Temperature 98.7, heart rate 71, blood pressure 160/85, respirations 18, pulse oximetry 100% on room air. GENERAL: The patient appears well, in no acute distress. Alert, awake and oriented x3. HEENT: Extraocular muscles intact. Mucous membranes moist. NECK: Supple. No JVD at 45 degrees. No carotid bruits heard bilaterally. Carotid upstroke is brisk in nature. HEART: Regular rate and rhythm. Positive first and second heart sounds with a 1/6 holosystolic murmur noted at the apex. LUNGS: Clear to auscultation bilaterally. No wheezes, rales or rhonchi. ABDOMEN: Soft, nontender, nondistended. No organomegaly noted. EXTREMITIES: Show no clubbing, cyanosis or edema. Femoral and distal pulses intact bilaterally. NEUROLOGIC: No focal deficits. SKIN: Warm, dry and intact. OSTEOPATHIC: No kyphoscoliosis, lordosis or paraspinal tender points. LABORATORY DATA: Hemoglobin 13.1, hematocrit 38.4, platelets 143. Sodium 130, potassium 3.2, BUN 7, creatinine 0.76. Troponin 3.65 decreasing to 2.58. Electrocardiogram (10/12/2017 at 0007): Sinus rhythm, first degree AV block, frequent PACs, LVH with secondary ST-T wave changes. IMPRESSION: 1. Seizure, possibly due to hyponatremia. 2. Hyponatremia. 3. Elevated troponin, possible type 1 versus type 2. 4. Remote tobacco abuse. 5. Essential hypertension. RECOMMENDATIONS: 1. Ms. Nicolas presented after a syncopal episode, which may be due to her hyponatremia. This will be further evaluated by the primary care team/critical care team. 2. She did have an elevated troponin and this may be a type 2 in nature due to her seizure and most likely hypoxic event during the seizure. 3. I did discuss with her that I believe that she should undergo an ischemic evaluation at some time during her hospitalization due to the significant elevation of her troponin. Due to the overall level of the troponin I think that it would be reasonable to consider s cardiac catheterization and forego stress testing. This was discussed extensively with her and her , and she would like to hold off at this time. This can be reevaluated at any time inpatient or outpatient from my standpoint. After discussing this extensively with her and her , she states that she would not want to undergo a cardiac catheterization at all. She does understand what this is as her recently had one within the past few months. 4. For now we will treat her medically and plan for aspirin and beta jessica therapy. 5. She will need further blood pressure control. 6. We will check a 2-D echo to look at her overall left ventricular function, cardiac structure and possible valvulopathies. 7. Further recommendations will be made based on the hospital course. Thank you for allowing me to see Regi Nicolas. If there are any questions, please do not hesitate to call. Quoc Rawls, DO VGP/ct , 12:42 PM , 12:55 PM
[2017-10-13] MEDS ORDERED: Lisinopril 10 MG Tablet PO ONE (17:00)
--- NOTE | 2017-10-13 17:23 | ECHRPT ---
Indication: CORONARY ATHEROSCLEROSIS CONCLUSIONS The left ventricular systolic function is low normal with an estimated ejection fraction in the rang e of 50- 55%. Doppler parameters are consistent with impaired left ventricular relaxtion (grade 1 diastolic dysfun ction). Mild mitral valve regurgitation. Trace aortic valve regurgitation. There is mild tricuspid valve regurgitation. BP: / HR: Rhythm: Sinus MEASUREMENTS (Male / Female) Normal Values Technical Quality:Fair 2D ECHO LV Diastolic Diameter PLAX 4.5 cm 4.2 - 5.9 / 3.9 - 5.3 cm LV Systolic Diameter PLAX 3.8 cm IVS Diastolic Thickness 0.9 cm 0.6 - 1.0 / 0.6 - 0.9 cm LVPW Diastolic Thickness 1.0 cm 0.6 - 1.0 / 0.6 - 0.9 cm LV Relative Wall Thickness 0.4 RV Internal Dim ED PLAX 1.9 cm LVOT Diameter 1.6 cm Aortic Root Diameter 2.7 cm LA Systolic Diameter LX 3.0 cm 3.0 - 4.0 / 2.7 - 3.8 cm M-MODE AV Cusp Separation MM 1.6 cm DOPPLER AV Peak Velocity 136.0 cm/s AV Peak Gradient 7.4 mmHg AV Mean Gradient 3.0 mmHg AV Velocity Time Integral 19.5 cm LVOT Peak Velocity 96.3 cm/s LVOT Peak Gradient 3.7 mmHg LVOT Velocity Time Integral 15.7 cm AV Area Cont Eq vti 1.6 cm AV Area Cont Eq pk 1.4 cm Mitral E Point Velocity 51.3 cm/s Mitral A Point Velocity 85.4 cm/s Mitral E to A Ratio 0.6 LV E' Lateral Velocity 3.0 cm/s Mitral E to LV E' Lateral Ratio 17.0 LV E' Septal Velocity 4.1 cm/s Mitral E to LV E' Septal Ratio 12.5 TR Peak Velocity 301.0 cm/s TR Peak Gradient 36.2 mmHg Right Atrial Pressure 10.0 mmHg Pulmonary Artery Systolic Pressu 46.2 mmHg Right Ventricular Systolic Press 46.2 mmHg PV Peak Velocity 43.6 cm/s PV Peak Gradient 0.8 mmHg FINDINGS LEFT VENTRICLE Normal left ventricular size. Wall thickness is normal. The left ventricular systolic function is low normal with an estimated ejection fraction in the rang e of 50- 55%. Doppler parameters are consistent with impaired left ventricular relaxtion (grade 1 diastolic dysfun ction). RIGHT VENTRICLE Normal right ventricular size and systolic function. LEFT ATRIUM The left atrial size is upper limits of normal. RIGHT ATRIUM The right atrial size is normal. ATRIAL SEPTUM Normal atrial septal thickness AORTA The aortic root and proximal ascending aorta are normal in size on limited imaging. MITRAL VALVE Mild mitral annular calcification. No mitral valve stenosis. Mild mitral valve regurgitation. AORTIC VALVE Trace aortic valve regurgitation. No aortic valve stenosis. TRICUSPID VALVE Grossly normal tricuspid valve. There is mild tricuspid valve regurgitation. The estimated pulmonary arterial pressure is 46.2 mmHg. PULMONARY VALVE No pulmonary valve regurgitation or stenosis. VESSELS The inferior vena cava is normal in size. PERICARDIUM No pericardial [id number] Quoc Rawls DO (Electronically Signed) Final Date:13 October 2017 17:21
[2017-10-13 19:07] LABS: Hemoglobin A1c 5.3 % (4.3-6.0)
[2017-10-13] MEDS: Carvedilol 12.5 MG Tablet PO SCH (20:20)
[2017-10-14] MEDS: Heparin Drip 25,000 UNIT/250 ML BAG IV.CONT PRN (00:18)
[2017-10-14] MEDS: KCL 20 mEq/Dextrose 5% Inj 1,000 ML IV.CONT SCH (04:05)
[2017-10-14 06:52] LABS: Baso % (Auto) 0.7 % (0.0-2.0); Eos # (Auto) 0.1 th/mm3 (0.0-0.4); Hematocrit 39.2 % (35.0-46.0); Lymph # (Auto) 2.2 th/mm3 (1.0-4.8); Lymph % (Auto) 31.2 % (9.0-44.0); Mean Corpuscular HGB Conc 35.8 % (32.0-36.0); Mean Corpuscular Hemoglobin 33.2 pg (27.0-34.0); Mean Corpuscular Volume 92.9 fL (80.0-100.0); Mean Platelet Volume 9.3 fL (7.0-11.0); Mono # (Auto) 0.4 th/mm3 (0.0-0.9); Mono % (Auto) 5.4 % (0.0-8.0); Neut # (Auto) 4.4 th/mm3 (1.8-7.7); Neut % (Auto) 61.7 % (16.0-70.0); Platelet Count 148 th/mm3 (150-450); Red Blood Count 4.22 mil/mm3 (4.00-5.30); Red Cell Distribution Width 12.8 % (11.6-17.2); White Blood Count 7.1 th/mm3 (4.0-11.0)
[2017-10-14 07:06] LABS: Alanine Aminotransferase 20 U/L (10-53); Albumin 2.8 g/dL (3.4-5.0); Anion Gap 13 meq/L (5-15); Aspartate Aminotransferase 31 U/L (15-37); Blood Urea Nitrogen 3 mg/dL (7-18); Calcium 8.4 mg/dL (8.5-10.1); Carbon Dioxide 20.8 meq/L (21.0-32.0); Chloride 92 meq/L (98-107); Glomerular Filtration Rate Greater Than 89 mL/min (>89); Glucose,Random 115 mg/dL (74-106); Magnesium 1.3 mg/dL (1.5-2.5); Potassium 3.8 meq/L (3.5-5.1); Sodium 126 meq/L (136-145)
[2017-10-14 07:08] LABS: Alkaline Phosphatase 63 U/L (45-117); Total Protein 6.6 g/dL (6.4-8.2)
[2017-10-14] MEDS: Insulin NovoLOG Aspart Correctional Sugar Inj SQ SCH (08:17)
[2017-10-14] MEDS: Carvedilol 12.5 MG Tablet PO SCH ×2 (08:18→20:14)
[2017-10-14] MEDS: Senna/Docusate Sodium 8.6/50 MG Tablet PO SCH ×2 (08:18→20:14)
[2017-10-14] MEDS: amLODIPine 10 MG Tablet PO SCH (08:18)
[2017-10-14] MEDS ORDERED: Lisinopril 20 MG Tablet PO SCH (09:00)
[2017-10-14] MEDS ORDERED: Magnesium Sulfate Inj 2 GM in Sodium Chlor 0.9% Inj 96 ML IV.SIG ONE (11:44)
--- NOTE | 2017-10-14 12:00 | P.PNIM ---
Subjective Interval history: The pt was sitting up in a chair. She was looking forward to going home soon. Family at the bedside. No acute concerns. Discussed with nursing. Physical Exam Vital signs: Vital Signs 10/13/17 12:00 10/13/17 16:00 10/13/17 20:00 Temperature 98.3 F 98.3 F 98.4 F Pulse Rate 66 69 78 Respiratory Rate 18 16 23 Blood Pressure 187/94 H 181/92 H 200/97 H Pulse Oximetry 100 100 100 10/14/17 00:00 10/14/17 04:00 Temperature 98.8 F 98.2 F Pulse Rate 62 69 Respiratory Rate 12 24 Blood Pressure 126/63 169/74 H Pulse Oximetry 100 100 Intake & Output 10/13/17 10/14/17 10/14/17 18:59 06:59 18:59 Intake Total 2120 / 2120 1250 / 1250 Output Total 150 / 150 Balance 1969 / 1969 1250 / 1250 Weight 59.1 kg Intake: IV 1300 / 1300 1250 / 1250 Heparin/D5W 25,000 U/250 mL 25, 250 / 250 000 unit In 250 ml @ Per Protocol 7 mls/hr IV.CONT TITRATE PRN Rx#:[id number] D5W + KCL 20 mEq Inj 1,000 ML @ 1000 / 1000 1000 / 1000 60 mls/hr IV.CONT .[id number] MARY Rx#:[id number] KCl 20 mEq Premix Inj 20 meq In 300 / 300 100 ml @ 50 mls/hr IV.SIG Q2H PRN Rx#:[id number] Oral 820 / 820 Output: Urine 150 / 150 Other: # Voids 4 4 Date of Last Bowel Movement 10/13/17 10/13/17 # Bowel Movements 2 0 Narrative: GENERAL: Well-nourished, well-developed patient in NAD. SKIN: Warm and dry. HEAD: Atraumatic. Normocephalic. EYES: Pupils equal and round, 3 mm reactive. No scleral icterus. No injection or drainage. ENT: No nasal bleeding or discharge. Mucous membranes pink and moist. NECK: Trachea midline. CARDIOVASCULAR: Regular rate and rhythm. No murmurs rubs or gallops. RESPIRATORY: No accessory muscle use. Clear to auscultation. Breath sounds equal bilaterally. GASTROINTESTINAL: Abdomen soft, non-tender, nondistended. Bowel sounds present. MUSCULOSKELETAL: Extremities without clubbing, cyanosis, or edema. No obvious deformities. NEUROLOGICAL: Awake and alert. No obvious cranial nerve deficits. Strength 5/5 , sensation intact. - Urinary Catheter Management Female External Cath placed during this visit: no Results - Labs CBC & Chem 7: 10/14/17 05:44 10/14/17 05:44 Laboratory Results - last 24 hr 10/13/17 10/13/17 10/13/17 11:31 13:30 13:30 WBC RBC Hgb Hct MCV MCH MCHC RDW Plt Count MPV Neut % (Auto) Lymph % (Auto) [place] % (Auto) Eos % (Auto) Baso % (Auto) Neut # (Auto) Lymph # (Auto) [place] # (Auto) Eos # (Auto) Baso # (Auto) WBC Differential Differential Comment APTT Sodium 128 L Potassium Chloride Carbon Dioxide Anion Gap BUN Creatinine Estimated GFR POC Glucose 137 H Random Glucose Hemoglobin A1c 5.3 Calcium Magnesium Total Bilirubin Direct Bilirubin Indirect Bilirubin AST ALT Alkaline Phosphatase Total Protein Albumin 10/13/17 10/13/17 10/13/17 13:30 17:00 20:02 WBC RBC Hgb Hct MCV MCH MCHC RDW Plt Count MPV Neut % (Auto) Lymph % (Auto) [place] % (Auto) Eos % (Auto) Baso % (Auto) Neut # (Auto) Lymph # (Auto) [place] # (Auto) Eos # (Auto) Baso # (Auto) WBC Differential Differential Comment APTT 39.7 H D Sodium 126 L Potassium Chloride Carbon Dioxide Anion Gap BUN Creatinine Estimated GFR POC Glucose 152 H Random Glucose Hemoglobin A1c Calcium Magnesium Total Bilirubin Direct Bilirubin Indirect Bilirubin AST ALT Alkaline Phosphatase Total Protein Albumin 10/13/17 10/13/17 10/13/17 20:19 21:46 21:46 WBC RBC Hgb Hct MCV MCH MCHC RDW Plt Count MPV Neut % (Auto) Lymph % (Auto) [place] % (Auto) Eos % (Auto) Baso % (Auto) Neut # (Auto) Lymph # (Auto) [place] # (Auto) Eos # (Auto) Baso # (Auto) WBC Differential Differential Comment APTT 82.1 H D Sodium Potassium 3.7 Chloride Carbon Dioxide Anion Gap BUN Creatinine Estimated GFR POC Glucose 128 H Random Glucose Hemoglobin A1c Calcium Magnesium Total Bilirubin Direct Bilirubin Indirect Bilirubin AST ALT Alkaline Phosphatase Total Protein Albumin 10/14/17 10/14/17 10/14/17 05:44 05:44 05:44 WBC 7.1 RBC 4.22 Hgb 14.0 Hct 39.2 MCV 92.9 MCH 33.2 MCHC 35.8 RDW 12.8 Plt Count 148 L MPV 9.3 Neut % (Auto) 61.7 Lymph % (Auto) 31.2 [place] % (Auto) 5.4 Eos % (Auto) 1.0 Baso % (Auto) 0.7 Neut # (Auto) 4.4 Lymph # (Auto) 2.2 [place] # (Auto) 0.4 Eos # (Auto) 0.1 Baso # (Auto) 0.0 WBC Differential . Differential Comment Auto diff final APTT 63.7 H D Sodium 126 L Potassium 3.8 Chloride 92 L Carbon Dioxide 20.8 L Anion Gap 13 BUN 3 L Creatinine 0.67 Estimated GFR Greater than 89 POC Glucose Random Glucose 115 H Hemoglobin A1c Calcium 8.4 L Magnesium 1.3 L Total Bilirubin 0.9 Direct Bilirubin 0.2 Indirect Bilirubin 0.7 AST 31 ALT 20 Alkaline Phosphatase 63 Total Protein 6.6 Albumin 2.8 L 10/14/17 08:08 WBC RBC Hgb Hct MCV MCH MCHC RDW Plt Count MPV Neut % (Auto) Lymph % (Auto) [place] % (Auto) Eos % (Auto) Baso % (Auto) Neut # (Auto) Lymph # (Auto) [place] # (Auto) Eos # (Auto) Baso # (Auto) WBC Differential Differential Comment APTT Sodium Potassium Chloride Carbon Dioxide Anion Gap BUN Creatinine Estimated GFR POC Glucose 128 H Random Glucose Hemoglobin A1c Calcium Magnesium Total Bilirubin Direct Bilirubin Indirect Bilirubin AST ALT Alkaline Phosphatase Total Protein Albumin Microbiology 10/13/17 17:45 Stool Stool Occult Blood (PERLA) - Final Hemoccult negative Assessment and Plan - Plan Acute seizure Likely secondary to hyponatremia. Mental status now baseline. No indication for anticonvulsant therapy currently. CT brain negative. Almost daily alcohol (reportedly 1-2 beers), although pt currently denies. Thiamine 100 mg p.o. daily. Monitor for alcohol withdrawal. Ativan prn seizure. Acute on chronic hyponatremia Improving. -discontinued home HCTZ. -d/c IVFs. -follow BMP. NSTEMI Cardiology consult appreciated. -continue cardiac regimen. Titrate as needed. -continue heparin gtt, scheduled to d/c 10/14. -further management per cardiology. -telemetry. HTN Poorly controlled. -continue amlodipine, Coreg, lisinopril and clonidine. -HCTZ discontinued s/t hyponatremia. -Vasotec as needed. TSH elevated Free T3 and free T4 are well within normal range and she denies symptoms. May be subclinical hypothyroidism. -Followup labs in a few months as outpatient. PROPH: Heparin gtt
[2017-10-14] MEDS: Lisinopril 20 MG Tablet PO SCH (20:14)
--- NOTE | 2017-10-14 23:17 | P.PNCA ---
Subjective Interval history: No events overnight No chest pain/SOB Physical Exam Vital signs: Vital Signs 10/14/17 00:00 10/14/17 04:00 10/14/17 08:00 Temperature 98.8 F 98.2 F 98 F Pulse Rate 62 69 69 Respiratory Rate 12 24 15 Blood Pressure 126/63 169/74 H 173/86 H Pulse Oximetry 100 100 100 10/14/17 12:00 10/14/17 16:00 Temperature 98.7 F 98.7 F Pulse Rate 65 65 Respiratory Rate 27 H 16 Blood Pressure 150/78 H 166/78 H Pulse Oximetry 100 100 Intake & Output 10/14/17 10/14/17 10/15/17 06:59 18:59 06:59 Intake Total 1250 / 1250 970 / 970 750 / 750 Balance 1250 / 1250 970 / 970 750 / 750 Weight 59.1 kg Intake: IV 1250 / 1250 350 / 350 750 / 750 Heparin/D5W 25,000 U/250 mL 25, 250 / 250 250 / 250 000 unit In 250 ml @ Per Protocol 7 mls/hr IV.CONT TITRATE PRN Rx#:[id number] D5W + KCL 20 mEq Inj 1,000 ML @ 1000 / 1000 750 / 750 60 mls/hr IV.CONT .[id number] MARY Rx#:[id number] Magnesium Sulfate Inj 2 GM In 100 / 100 NS Inj 96 ML @ 50 mls/hr IV.SIG ONCE ONE Rx#:[id number] Oral 620 / 620 Other: # Voids 4 4 Date of Last Bowel Movement 10/13/17 10/13/17 # Bowel Movements 0 Narrative: GENERAL: Well-nourished, well-developed patient in NAD. SKIN: Warm and dry. HEAD: Atraumatic. Normocephalic. EYES: Pupils equal and round, 3 mm reactive. No scleral icterus. No injection or drainage. ENT: No nasal bleeding or discharge. Mucous membranes pink and moist. NECK: Trachea midline. CARDIOVASCULAR: Regular rate and rhythm. No murmurs rubs or gallops. RESPIRATORY: No accessory muscle use. Clear to auscultation. Breath sounds equal bilaterally. GASTROINTESTINAL: Abdomen soft, non-tender, nondistended. Bowel sounds present. MUSCULOSKELETAL: Extremities without clubbing, cyanosis, or edema. No obvious deformities. NEUROLOGICAL: Awake and alert. No obvious cranial nerve deficits. Strength 5/5 , sensation intact. - Urinary Catheter Management Female External Cath placed during this visit: no Assessment and Plan - Assessment (1) NSTEMI (non-ST elevated myocardial infarction) Code(s): I21.4 - Non-ST elevation (NSTEMI) myocardial infarction Status: Acute (2) New onset seizure Code(s): R56.9 - Unspecified convulsions Status: Acute (3) Acute hyponatremia Code(s): E87.1 - Hypo-osmolality and hyponatremia Status: Acute - Plan 1) Hyponatremia Discussed with her that salt tablets due not help in her case, and shouldn't be taking them 2) Seizure Secondary to hyponatremia 3) NSTEMI Possible due to hypoxia with the seizure Recommended an ischemia evaluation, particularly with catheterization but also offered stress testing She is adament on not undergoing cath or stress test Con't medical management 4) EF 50-55%
[2017-10-15 04:47] LABS: Anion Gap 12 meq/L (5-15); Blood Urea Nitrogen 3 mg/dL (7-18); Calcium 8.4 mg/dL (8.5-10.1); Carbon Dioxide 21.5 meq/L (21.0-32.0); Chloride 96 meq/L (98-107); Glomerular Filtration Rate Greater Than 89 mL/min (>89); Glucose,Random 99 mg/dL (74-106); Magnesium 1.6 mg/dL (1.5-2.5); Potassium 4.1 meq/L (3.5-5.1); Sodium 129 meq/L (136-145)
[2017-10-15] MEDS ORDERED: Mag Sulf 1 gm/100 ml Premix 100 ML IV.SIG ONE (09:04)
[2017-10-15] MEDS: Senna/Docusate Sodium 8.6/50 MG Tablet PO SCH ×2 (09:26→20:20)
[2017-10-15] MEDS: Carvedilol 12.5 MG Tablet PO SCH ×2 (09:26→20:20)
[2017-10-15] MEDS: Lisinopril 20 MG Tablet PO SCH ×2 (09:27→20:20)
[2017-10-15] MEDS: amLODIPine 10 MG Tablet PO SCH (09:27)
--- NOTE | 2017-10-15 10:21 | P.PNCA ---
Subjective Interval history: No events overnight Feels great Physical Exam Vital signs: Vital Signs 10/14/17 12:00 10/14/17 16:00 10/14/17 20:00 Temperature 98.7 F 98.7 F 98.4 F Pulse Rate 65 65 71 Respiratory Rate 27 H 16 16 Blood Pressure 150/78 H 166/78 H 157/77 H Pulse Oximetry 100 100 100 10/15/17 00:00 10/15/17 04:00 Temperature Pulse Rate 77 70 Respiratory Rate 16 17 Blood Pressure 104/55 L 140/67 Pulse Oximetry 100 100 Intake & Output 10/14/17 10/15/17 10/15/17 18:59 06:59 18:59 Intake Total 970 / 970 1230 / 1230 Balance 970 / 970 1230 / 1230 Weight 59.8 kg Intake: IV 350 / 350 750 / 750 Heparin/D5W 25,000 U/250 mL 25, 250 / 250 000 unit In 250 ml @ Per Protocol 7 mls/hr IV.CONT TITRATE PRN Rx#:[id number] D5W + KCL 20 mEq Inj 1,000 ML @ 750 / 750 60 mls/hr IV.CONT .[id number] MARY Rx#:[id number] Magnesium Sulfate Inj 2 GM In 100 / 100 NS Inj 96 ML @ 50 mls/hr IV.SIG ONCE ONE Rx#:[id number] Oral 620 / 620 480 / 480 Other: # Voids 4 4 Date of Last Bowel Movement 10/13/17 10/14/17 # Bowel Movements 0 Narrative: GENERAL: Well-nourished, well-developed patient in [facility]. SKIN: Warm and dry. HEAD: Atraumatic. Normocephalic. EYES: Pupils equal and round, 3 mm reactive. No scleral icterus. No injection or drainage. ENT: No nasal bleeding or discharge. Mucous membranes pink and moist. NECK: Trachea midline. CARDIOVASCULAR: Regular rate and rhythm. No murmurs rubs or gallops. RESPIRATORY: No accessory muscle use. Clear to auscultation. Breath sounds equal bilaterally. GASTROINTESTINAL: Abdomen soft, non-tender, nondistended. Bowel sounds present. MUSCULOSKELETAL: Extremities without clubbing, cyanosis, or edema. No obvious deformities. NEUROLOGICAL: Awake and alert. No obvious cranial nerve deficits. Strength 5/5 , sensation intact. - Urinary Catheter Management Female External Cath placed during this visit: no Assessment and Plan - Assessment (1) NSTEMI (non-ST elevated myocardial infarction) Code(s): I21.4 - Non-ST elevation (NSTEMI) myocardial infarction Status: Acute (2) New onset seizure Code(s): R56.9 - Unspecified convulsions Status: Acute (3) Acute hyponatremia Code(s): E87.1 - Hypo-osmolality and hyponatremia Status: Acute - Plan 1) Hyponatremia Discussed with her that salt tablets due not help in her case, and shouldn't be taking them 2) Seizure Secondary to hyponatremia 3) NSTEMI Possible due to hypoxia with the seizure Recommended an ischemia evaluation, particularly with catheterization but also offered stress testing She is adamant on not undergoing cath or stress test Con't medical management 4) EF 50-55%
--- NOTE | 2017-10-15 11:00 | P.PNIM ---
Subjective Interval history: The patient was resting comfortably in a chair. She was hoping to go home today. Her family was at the bedside. She had no acute complaints. Discussed with nursing and cardiology. Physical Exam Vital signs: Vital Signs 10/14/17 12:00 10/14/17 16:00 10/14/17 20:00 Temperature 98.7 F 98.7 F 98.4 F Pulse Rate 65 65 71 Respiratory Rate 27 H 16 16 Blood Pressure 150/78 H 166/78 H 157/77 H Pulse Oximetry 100 100 100 10/15/17 00:00 10/15/17 04:00 Temperature Pulse Rate 77 70 Respiratory Rate 16 17 Blood Pressure 104/55 L 140/67 Pulse Oximetry 100 100 Intake & Output 10/14/17 10/15/17 10/15/17 18:59 06:59 18:59 Intake Total 970 / 970 1230 / 1230 Balance 970 / 970 1230 / 1230 Weight 59.8 kg Intake: IV 350 / 350 750 / 750 Heparin/D5W 25,000 U/250 mL 25, 250 / 250 000 unit In 250 ml @ Per Protocol 7 mls/hr IV.CONT TITRATE PRN Rx#:[id number] D5W + KCL 20 mEq Inj 1,000 ML @ 750 / 750 60 mls/hr IV.CONT .[id number] MARY Rx#:[id number] Magnesium Sulfate Inj 2 GM In 100 / 100 NS Inj 96 ML @ 50 mls/hr IV.SIG ONCE ONE Rx#:[id number] Oral 620 / 620 480 / 480 Other: # Voids 4 4 Date of Last Bowel Movement 10/13/17 10/14/17 # Bowel Movements 0 Narrative: GENERAL: Well-nourished, well-developed patient in NAD. SKIN: Warm and dry. HEAD: Atraumatic. Normocephalic. EYES: Pupils equal and round, 3 mm reactive. No scleral icterus. No injection or drainage. ENT: No nasal bleeding or discharge. Mucous membranes pink and moist. NECK: Trachea midline. CARDIOVASCULAR: Regular rate and rhythm. No murmurs rubs or gallops. RESPIRATORY: No accessory muscle use. Clear to auscultation. Breath sounds equal bilaterally. GASTROINTESTINAL: Abdomen soft, non-tender, nondistended. Bowel sounds present. MUSCULOSKELETAL: Extremities without clubbing, cyanosis, or edema. No obvious deformities. NEUROLOGICAL: Awake and alert. No obvious cranial nerve deficits. Strength 5/5 , sensation intact. - Urinary Catheter Management Female External Cath placed during this visit: no Results - Labs CBC & Chem 7: 10/14/17 05:44 10/15/17 03:30 Laboratory Results - last 24 hr 10/14/17 10/15/17 12:18 03:30 APTT 51.0 H Sodium 129 L Potassium 4.1 Chloride 96 L Carbon Dioxide 21.5 Anion Gap 12 BUN 3 L Creatinine 0.68 Estimated GFR Greater than 89 Random Glucose 99 Calcium 8.4 L Magnesium 1.6 Assessment and Plan - Plan Acute seizure Likely secondary to hyponatremia. Mental status now baseline. No indication for anticonvulsant therapy currently. CT brain negative. Almost daily alcohol (reportedly 1-2 beers), although pt currently denies. Thiamine 100 mg p.o. daily. Monitor for alcohol withdrawal. Ativan prn seizure. Acute on chronic hyponatremia Improving. -discontinued home HCTZ. -d/c IVFs. -follow BMP. NSTEMI Cardiology consult appreciated. -continue cardiac regimen. Titrate as needed. -Heparin drip discontinued on 10/14. -further management per cardiology. Will need to follow up as an outpatient. -telemetry. HTN Poorly controlled. -continue amlodipine 10 mg daily, Coreg 12.5 mg twice daily, lisinopril 20 mg twice daily. Increase clonidine to 0.2 mg twice daily. -HCTZ discontinued s/t hyponatremia. -Vasotec as needed. TSH elevated Free T3 and free T4 are well within normal range and she denies symptoms. May be subclinical hypothyroidism. -Followup labs in a few months as outpatient. PROPH: Lovenox Discharge Planning: Unable to discharge today because systolic blood pressure was over 200. Clonidine has been increased. Discharge in morning if blood pressure is better controlled. She also declined cardiac catheterization and will need to pursue outpatient cardiology follow-up with her manager ethics.
[2017-10-15] MEDS: Enoxaparin Inj 30 MG/0.3 ML Syringe SQ SCH (15:44)
[2017-10-16 04:31] LABS: Calcium 8.9 mg/dL (8.5-10.1); Carbon Dioxide 24.8 meq/L (21.0-32.0); Magnesium 1.8 mg/dL (1.5-2.5); Potassium 4.2 meq/L (3.5-5.1)
[2017-10-16] MEDS: Enoxaparin Inj 30 MG/0.3 ML Syringe SQ SCH (08:10)
[2017-10-16] MEDS: Senna/Docusate Sodium 8.6/50 MG Tablet PO SCH (08:11)
[2017-10-16] MEDS: Lisinopril 20 MG Tablet PO SCH (08:11)
[2017-10-16] MEDS: Carvedilol 12.5 MG Tablet PO SCH (08:11)
[2017-10-16] MEDS: amLODIPine 10 MG Tablet PO SCH (08:11)
--- NOTE | 2017-10-16 11:22 | P.PNCA ---
Subjective Interval history: No events overnight Blood pressure better Physical Exam Vital signs: Vital Signs 10/15/17 12:00 10/15/17 16:00 10/15/17 20:00 Temperature 98.6 F 98.1 F 98.0 F Pulse Rate 72 68 84 Respiratory Rate 30 H 25 H 21 Blood Pressure 158/77 H 173/83 H 144/71 H Pulse Oximetry 100 100 100 10/16/17 00:00 10/16/17 04:00 Temperature Pulse Rate 58 L 65 Respiratory Rate 12 19 Blood Pressure 117/58 L 130/63 Pulse Oximetry 100 100 Intake & Output 10/15/17 10/16/17 10/16/17 18:59 06:59 18:59 Intake Total 480 / 480 Balance 480 / 480 Weight 59.9 kg Intake: Oral 480 / 480 Other: # Voids 4 # Incontinent Voids 1 Date of Last Bowel Movement 10/14/17 10/15/17 # Bowel Movements 2 Narrative: GENERAL: Well-nourished, well-developed patient in NAD. SKIN: Warm and dry. HEAD: Atraumatic. Normocephalic. EYES: Pupils equal and round, 3 mm reactive. No scleral icterus. No injection or drainage. ENT: No nasal bleeding or discharge. Mucous membranes pink and moist. NECK: Trachea midline. CARDIOVASCULAR: Regular rate and rhythm. No murmurs rubs or gallops. RESPIRATORY: No accessory muscle use. Clear to auscultation. Breath sounds equal bilaterally. GASTROINTESTINAL: Abdomen soft, non-tender, nondistended. Bowel sounds present. MUSCULOSKELETAL: Extremities without clubbing, cyanosis, or edema. No obvious deformities. NEUROLOGICAL: Awake and alert. No obvious cranial nerve deficits. Strength 5/5 , sensation intact. - Urinary Catheter Management Female External Cath placed during this visit: no Assessment and Plan - Assessment (1) NSTEMI (non-ST elevated myocardial infarction) Code(s): I21.4 - Non-ST elevation (NSTEMI) myocardial infarction Status: Acute (2) New onset seizure Code(s): R56.9 - Unspecified convulsions Status: Acute (3) Acute hyponatremia Code(s): E87.1 - Hypo-osmolality and hyponatremia Status: Acute - Plan 1) Hyponatremia Discussed with her that salt tablets due not help in her case, and shouldn't be taking them Trending upward toward normal 2) Seizure Secondary to hyponatremia 3) NSTEMI Possible due to hypoxia with the seizure Recommended an ischemia evaluation, particularly with catheterization but also offered stress testing She is adamant on not undergoing cath or stress test Con't medical management 4) EF 50-55% 5) Blood pressure stable 6) No further cardiovascular work up Can follow up with myself or Dr. Ahmadi (her sees)
--- NOTE | 2017-10-16 13:31 | P.DS ---
Date of admission: 10/12/17 01:39 Primary care physician: UNKNOWN Brief History from admission: 67 year old -[place] female with past medical history of hypertension, HLD who presented to [facility] emergency department via [facility] following a seizure and is now being admitted to the hr leader service due to hyponatremia. She returned from her niece's house this evening and was in her baseline state of good health. She was sitting watching TV with her and having difficulty with operating the TV remote. She then had tonic clonic movements. No head trauma. [facility] arrived and she was lethargic, not able to provide history. She had additional tonic-clonic seizure and was given Versed 2 mg per [facility]. Upon arrival she was lethargic but mental status has improved while in the emergency department and now she is communicating and providing some history. No prior history of seizures. CT brain negative. Sodium is 116 and she is hypokalemic 2.8 and creatinine 1.18 (baseline 0.79). TSH 8.8, no hx of thyroid disease. Her PCP told her to increase salt intake about 2-3 months ago. She is an almost daily drinker of 1-2 beers for most of her life. She is on clonidine and an unknown additional antihypertensive medication. He does not think it was an MARCOS inhibitor or diuretic but she cannot name what medication it is. Prior recrods from 2017 was on lisinopril/HCTZ which could cause hyponatremia. Denies nausea, vomiting, diarrhea, excessive fluid intake, unintentional weight loss or gain, night sweats. She has had a slight cough, former smoker. No lung mass on CXR. DS: Medications - Discharge Medications Prescriptions: carvedilol [Coreg] 12.5 mg PO BID 30 Days #60 tab clonidine HCl 0.1 mg PO BID PRN 30 Days #60 tab PRN Reason: Systolic Blood Pressure > 170 losartan 50 mg PO DAILY 30 Days #30 tab DS: Summary Hospital Course: 67-year-old female admitted for seizure secondary to hyponatremia. She had elevated troponin levels which indicated underlying cardiac disease, but patient refused both stress test and cardiac catheterization offered by cardiology. She has had intermittent elevations of her blood pressure which have been controlled early with clonidine and changing of her medications. She was discontinued from HCTZ due to possible side effect of hyponatremia. Currently she has some family issues going on which are causing some stress, elevated high blood pressure. She is requesting to go home and after switching her lisinopril to losartan blood pressure has for the most part been okay. I have offered her clonidine as a as needed use at home. She is to continue losartan and carvedilol. 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 - Time Spent with Patient Total time spent providing and/or coordinating discharge services: Less than 30 minutes - Quality: VTE Deep Vein Thrombosis/Pulmonary Embolism Present on Admission: No Exam Vital signs: Vital Signs 10/15/17 16:00 10/15/17 20:00 10/16/17 00:00 Temperature 98.1 F 98.0 F Pulse Rate 68 84 58 L Respiratory Rate 25 H 21 12 Blood Pressure 173/83 H 144/71 H 117/58 L Pulse Oximetry 100 100 100 10/16/17 04:00 Temperature Pulse Rate 65 Respiratory Rate 19 Blood Pressure 130/63 Pulse Oximetry 100 Intake & Output 10/15/17 10/16/17 10/16/17 18:59 06:59 18:59 Intake Total 480 / 480 Balance 480 / 480 Weight 59.9 kg Intake: Oral 480 / 480 Other: # Voids 4 # Incontinent Voids 1 Date of Last Bowel Movement 10/14/17 10/15/17 # Bowel Movements 2 Results Procedures completed during hospitalization: none Labs on day of discharge: Labs from last 24 hours 10/16/17 03:05 Sodium 135 L Potassium 4.2 Chloride 101 Carbon Dioxide 24.8 Anion Gap 9 BUN 8 Creatinine 0.83 Estimated GFR 82 L Random Glucose 106 Calcium 8.9 Magnesium 1.8 - Impressions ITS Impressions Chest X-Ray 10/12/17 00:17 CONCLUSION: No evidence of acute cardiopulmonary disease. Head CT 10/12/17 00:17 CONCLUSION: Negative noncontrast head CT. . Discharge Plan - Discharge Disposition Patient Disposition: 01 Discharge Home - Discharge Condition Condition: Good - Discharge Order Discharge Orders: Discharge Order (Routine); Ordered 10/16/17 Ordered By: Kd Padron - Physicians Team Primary Care Provider: UNKNOWN, Attending Provider: Kd Padron Other Providers: [employer] ; Musa Mayer MD
== END 2017-10-16 14:32 | disposition home or self-care (01) ==
LOC: NEPE 00:03 → NEDA 01:39 → N03 03:55
PROVIDERS: ADMIT Family Medicine; ATTEND Family Medicine